=== PATIENT | female | born 1950 | race Caucasian/White ===

== ENCOUNTER 2018-11-03 11:07 | Inpatient (IN) | payer MEDICARE ==
--- NOTE | 2018-11-03 14:33 | RAD ---
XR Chest 1 View Portable History: Shortness of breath Comparison: Radiograph October 21, 2018 Findings: Enlarging right layering pleural effusion involving approximately 50% of the hemithorax vol ume. Small left effusion. No pneumothorax. Heart size is enlarged. Impression: Enlarging right layering pleural effusion and new moderate left effusion.
[2018-11-03] MEDS ORDERED: Bisacodyl 10 MG SUPP PR PRN (14:53)
[2018-11-03] MEDS ORDERED: HYDROcodone/Acetaminophen 5/325 mg Tablet PO PRN (14:53)
[2018-11-03] MEDS ORDERED: Ondansetron ODT 4 MG TAB PO PRN (14:53)
[2018-11-03] MEDS ORDERED: Ondansetron PF 4 MG/2 ML Vial IVP PRN (14:53)
[2018-11-03] MEDS ORDERED: Senokot S 8.6-50 MG TAB PO PRN (14:53)
[2018-11-03] MEDS ORDERED: Acetaminophen 325 MG TAB PO PRN (14:53)
[2018-11-03] MEDS ORDERED: Morphine 2 MG/ML SYRINGE SLOW IVP PRN (14:59)
[2018-11-03] MEDS ORDERED: Albuterol Sulfate 1.25 MG/3 ML NEB NEB PRN (15:00)
[2018-11-03] MEDS ORDERED: Albuterol Sulfate 1.25 MG/3 ML NEB NEB SCH (15:00)
[2018-11-03 15:20] LABS: Mean Corpuscular HGB CONC 32.3 g/dL (32.0-36.0); Mean Corpuscular Hemoglobin 28.5 pg (27.0-31.0); Mean Corpuscular Volume 88.1 fL (78.0-98.0); Mean Platelet Volume 7.8 fL (7.4-10.4); Platelet Count 164 thou/uL (130-400); RBC Distribution Width 14.4 % (11.5-14.5); Red Blood Cell (RBC) Count 4.56 mill/uL (4.20-5.40); White Blood Cell (WBC) Count 10.7 thou/uL (4.8-10.8)
[2018-11-03 15:40] LABS: Anion Gap 15 mmol/L (10-20); BUN (Urea Nitrogen) 10 mg/dL (9.8-20.1); Calc. Creatinine Clearance 163 mL/min (70-130); Calcium 9.6 mg/dL (7.8-10.44); Carbon Dioxide 19 mmol/L (23-31); Chloride 97 mmol/L (98-107); Estimated GFR-MDRD 90; Glucose 93 mg/dL (80-115); Potassium 4.1 mmol/L (3.5-5.1); Sodium 127 mmol/L (136-145); Uric Acid 4.5 mg/dL (2.6-6.0)
[2018-11-03 15:50] LABS: Band 12 % (5-11); Eosinophils 2 % (0-10); Lymphocytes 8 % (21-51); MDiff Complete? YES; Metamyelocyte 1 % (0-0); Monocytes 3 % (0-10); Myelocyte 1 % (0-0); Neutrophil 70 % (42-75); Platelet Morphology Comment Appears Adequate; Polychromasia SLIGHT = 2-3 cells (100X) (0-2/hpf); Reactive Lymphocytes 3 % (0-10)
--- NOTE | 2018-11-03 16:11 | HP ---
PRIMARY CARE PHYSICIAN: Rosales Vicente MD CHIEF COMPLAINT: Worsening shortness of breath. HISTORY OF PRESENT ILLNESS: A 67-year-old female with known history of Sjogren's syndrome, lupus, celiac disease, hypertension, and hypothyroidism, admitted on a transfer from [facility] for further evaluation and treatment of newly diagnosed aggressive lymphoma. The patient was initially admitted at the transferring hospital on October 29 due to progressively worsening shortness of breath dating back more than 8 months. On initial evaluation, impression of sepsis and acute hypoxic respiratory failure from pneumonia was made and the patient was started on broad-spectrum antibiotics. Further evaluation showed pleural effusion for which the patient had thoracentesis. Fluid analysis and pathology actually showed a lymphoma. Due to the absence of that specialty in [facility], the patient was transferred over here for further evaluation and treatment. The patient has been not in the ICU Unit of that hospital and has been on antibiotics as well as noninvasive respiratory support and bronchodilators since admission. She reported some improvement, but however continued to have significant respiratory distress including conversational dyspnea. Note that there has been no history of fever, chest pain, hemoptysis, hematuria, dysuria, headache, or abdominal pain. The patient admitted to bilateral leg swelling, which progressively has worsened as well as upper extremities. PAST MEDICAL HISTORY: 1. Sjogren's syndrome. 2. Lupus. 3. Celiac disease. 4. Hypertension. 5. Hypothyroidism. 6. Obesity. PAST SURGICAL HISTORY: 1. Tonsillectomy. 2. Prior lung biopsy. 3. Breast biopsy. FAMILY HISTORY: Significant for thyroid cancer in mother. Son also had some form of lung cancer. Brother had sarcoidosis. SOCIAL HISTORY: The patient is a nonsmoker. Denied alcohol or recreational drug use. She lives with . She wants to be full code. is the surrogate decision maker. ALLERGIES: NONE. MEDICATIONS: Prior to hospital medications; 1. Losartan 100 mg p.o. daily. 2. Synthroid 100 mcg p.o. daily. 3. Omnicef, which was recently prescribed prior to hospitalization. 4. Cytomel. REVIEW OF SYSTEMS: Twelve-point review of system performed was negative other than pertinent positives and negatives included in the history of present illness. PHYSICAL EXAMINATION: VITAL SIGNS: Temperature 98.3, pulse 107, respiratory rate 23, and SpO2 of 91% on oxygen supplementation via nasal cannula. GENERAL: Obese female, in moderate respiratory distress. The patient has conversational dyspnea. HEENT: Normocephalic, atraumatic. Pupils are reacting to light. Oral mucosa is moist. NECK: Supple, nontender with full range of motion. No obvious masses were noted. CARDIOVASCULAR: Regular rhythm and rate, but tachycardic. Normal heart sounds 1 and 2 with no obvious murmur was appreciated. RESPIRATORY: Fair air entry bilateral with some transmitted sounds. Air entry, however, is decreased at both bases. There is no obvious rhonchi appreciated. Work of breathing is increased. The patient also is tachypneic. GASTROINTESTINAL: Morbidly obese, soft, nontender, nondistended with normal bowel sounds. EXTREMITIES: [id number] edema of all the extremities noted. No erythema or cyanosis appreciated. Right cubital fossa bruise noted as well. CENTRAL NERVOUS SYSTEM: Conscious and alert and oriented x3 with appropriate mental status. Cranial nerves II through XII are grossly intact. PERTINENT DIAGNOSTIC DATA: Pleural fluid cytology showed lymphoma. CTA chest performed on October 29 showed extensive mediastinal adenopathy with soft tissue mass surrounding the trachea and the thoracic esophagus. Moderate layering right pleural effusion with mass-like consolidation within the right lower lobe as well as small left pleural effusion were noted. However, there were no suspicious osteolytic or osteoblastic lesion. Liver appeared cirrhotic. Also noted were extrinsic mass effect upon the right upper lobe pulmonary arteries with complete obliteration of the posterior segment of the right upper lobe pulmonary artery. There is attenuation of the anterior and apical right upper lobe pulmonary arteries. Right middle lobe pulmonary arteries are attenuated. CT scan of the chest performed on October 29 showed extensive right lower lobe consolidation with moderate layering effusion suggesting infection with parapneumonic fluid. BMP on November 02 showed sodium 132, potassium 3.8, chloride 100, CO2 of 22, glucose 97, BUN 12, creatinine 0.77, and calcium 8.9. CBC on November 02 showed WBC of 8.3, hemoglobin of 12.5, MCV of 87, and platelet of 180. ASSESSMENT: 1. Acute respiratory failure with hypoxia: This is due to parapneumonic effusion plus postobstructive pneumonia as well as neoplastic infiltration. The patient is found to have a lymphoma. 2. Pneumonia. 3. Parapneumonic effusion. 4. Mediastinal lymphadenopathy. 5. Hyponatremia: Most likely due to syndrome of inappropriate antidiuretic hormone secretion related to lung mass. 6. History of hypertension. 7. Hypothyroidism. 8. New diagnosis of aggressive lymphoma. 9. Obesity. 10. History of Sjogren's syndrome. 11. History of celiac disease. 12. History of lupus. 13. 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 PLAN: 1. We will continue noninvasive respiratory support as well as broad-spectrum antibiotics. 2. Bronchodilators p.r.n. as needed as well as morphine will be provided. 3. DVT prophylaxis with SCDs and Lovenox will be provided as well. 4. We get repeat CBC, CMP, and coagulation panel in the morning. 5. We will consult Pulmonology and Oncology. General Surgery has been consulted for pleural catheter placement as well as Port-A-Cath to facilitate chemotherapy. CODE STATUS: The patient wants to be full code. Spouse is the surrogate decision maker. Job ID: [id number]
[2018-11-03] MEDS: Azithromycin 500 MG in Sodium Chloride 0.9% 250 ML 250 ML IVPB SCH (16:19)
--- NOTE | 2018-11-03 16:26 | CON ---
DATE OF CONSULTATION: 11/03/2018 REASON FOR CONSULTATION: Evaluate the patient with lymphoma and a right-sided recurrent pleural effusion for PleurX catheter placement. DESCRIPTION OF HOSPITAL STAY: Ms. Nicole has been becoming progressively short of breath over the last month. She had a recent thoracentesis, which returned as lymphoma. Her right-sided effusion has recurred rapidly, and I have been asked to see her to place a PleurX catheter. She also needs a MediPort placed for initiation of chemotherapy. PAST MEDICAL HISTORY: 1. Hypertension. 2. Lymphoma. PAST SURGICAL HISTORY: None. CURRENT MEDICATIONS: 1. Losartan 100 mg daily. 2. Cytomel 5 mcg daily. 3. Synthroid 100 mcg daily. ALLERGIES: NONE. PHYSICAL EXAMINATION: GENERAL: This is an obese woman, resting sitting upright on bed in the [facility], [place]. VITAL SIGNS: Height 5 feet 2 inches, weight 267 pounds. LUNGS: Have diminished breath sounds on the right base. HEART: Rhythm is regular. ABDOMEN: Obese, soft, and nontender. EXTREMITIES: No edema. ASSESSMENT AND PLAN: This is a very pleasant 67-year-old woman, who needs IV access for initiation of chemotherapy and also right PleurX catheter placement. We have discussed the procedures in detail, and she is agreeable to proceed. Job ID: [id number]
[2018-11-03] MEDS: Cefepime 2 GM in Sodium Chloride 0.9% 100 ML IVPB SCH (17:57)
--- NOTE | 2018-11-03 18:12 | PRG ---
DATE OF SERVICE: 11/03/2018 HISTORY OF PRESENT ILLNESS: Ms. Nicole is a 67-year-old female, who is admitted to [facility]. She underwent a thoracentesis over there. 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 She has had a fairly rapid reaccumulation of pleural fluid clinically and also continues to have night sweats and feel poorly. It was felt that she would best be served if she was transferred to [place] for PleurX catheter placement, placement of a MediPort, and initiation of chemotherapy if possible as an inpatient. She has had a 2-month decline in her functional status, starting at the beginning in August. For the last 2 weeks according to the , it had been particularly bad. PAST MEDICAL HISTORY: Remarkable for; 1. Sjogren syndrome. 2. Lupus. 3. Celiac disease. 4. Hypertension. 5. Hypothyroidism. 6. Obesity. 7. History of tonsillectomy. 8. History of breast biopsy in the past. FAMILY HISTORY: Negative for lung disease in early age. SOCIAL HISTORY: Nonsmoker, nondrinker, nondrug user. ALLERGIES: THERE ARE NO REPORTED DRUG ALLERGIES. PHYSICAL EXAMINATION: GENERAL: She is in no distress, although she talks in short sentences. VITAL SIGNS: Blood pressure 135/95, heart rate is 105, respiratory rates in the high 20s, and oximetry is 95% on a cannula. Plan to switch her to a high-flow cannula. She will sleep with BiPAP as she was doing at [facility]. HEENT: Her pupils are equal. Sclerae are anicteric. NECK: Supple. Trachea is in the midline. LUNGS: She has decreased breath sounds retirement up on the right. HEART: Regular rhythm. S1 and S2 are normal. ABDOMEN: Soft and nontender. EXTREMITIES: Without edema. IMPRESSION: Lymphoma. We agreed to work up, but obviously is not complete, but she appears to clinically have an aggressive lymphoma at this time. I have consulted CT Surgery for port placement and a PleurX catheter placement, which should improve her symptoms. I have also consulted Oncology. For interesting to note that she had a very small pleural effusion only 2 weeks ago, now she has a significant effusion that is reaccumulating rapidly. LABORATORY DATA: White count 10.7, hemoglobin 13 g, and platelets 164. There is 1% metamyelocytes and 1% myelocytes on her peripheral smear. Her creatinine is normal. Sodium is 127, on 10/18 it was 140. LDH is 986. Uric acid was 4.5. We will continue to follow the other physicians caring for. Job ID: [id number]
[2018-11-03] MEDS ORDERED: Guaifenesin DM 100-10/5 ML UDCUP PO SCH (20:45)
[2018-11-03] MEDS ORDERED: Temazepam 15 MG CAP PO SCH (20:45)
[2018-11-03] MEDS: Famotidine 20 MG TAB PO SCH (21:05)
[2018-11-03] MEDS: Famotidine/PF 20 mg/2ml Vial SLOW IVP SCH (21:11)
[2018-11-04 05:01] LABS: INR-International Normal Ratio 1.1; PTT 26.1 SEC (22.9-36.1); Prothrombin Time 13.8 SEC (12.0-14.7)
[2018-11-04 05:16] LABS: Phosphorus 2.9 mg/dL (2.3-4.7)
[2018-11-04 05:20] LABS: ALT (SGPT) 25 U/L (8-55); AST (SGOT) 27 U/L (5-34); Albumin 3.6 g/dL (3.4-4.8); Alkaline Phosphatase 53 U/L (40-150); Anion Gap 11 mmol/L (10-20); BUN (Urea Nitrogen) 12 mg/dL (9.8-20.1); Bilirubin, Total 0.9 mg/dL (0.2-1.2); Calc. Creatinine Clearance 147 mL/min (70-130); Calcium 9.6 mg/dL (7.8-10.44); Carbon Dioxide 25 mmol/L (23-31); Chloride 96 mmol/L (98-107); Estimated GFR-MDRD 80; Glucose 84 mg/dL (80-115); Potassium 4.3 mmol/L (3.5-5.1); Protein, Total 5.6 g/dL (6.0-8.3); Sodium 128 mmol/L (136-145)
[2018-11-04 05:44] LABS: Band 1 % (5-11); Hemoglobin 12.7 g/dL (12.0-16.0); Lymphocytes 12 % (21-51); MDiff Complete? YES; Mean Corpuscular HGB CONC 32.7 g/dL (32.0-36.0); Mean Corpuscular Volume 88.7 fL (78.0-98.0); Mean Platelet Volume 7.6 fL (7.4-10.4); Monocytes 11 % (0-10); Neutrophil 75 % (42-75); Platelet Count 145 thou/uL (130-400); RBC Distribution Width 14.3 % (11.5-14.5); Red Blood Cell (RBC) Count 4.37 mill/uL (4.20-5.40); White Blood Cell (WBC) Count 8.7 thou/uL (4.8-10.8)
[2018-11-04] MEDS: Cefepime 2 GM in Sodium Chloride 0.9% 100 ML IVPB SCH ×2 (06:01→17:25)
[2018-11-04] MEDS: Levothyroxine Sodium 100 MCG TAB PO SCH (06:01)
[2018-11-04] MEDS ORDERED: Midazolam HCl 2 mg/2 ml Vial ONE (08:51)
[2018-11-04] MEDS ORDERED: Enoxaparin Sodium 40 MG/0.4 ML SYRINGE SC SCH (09:00)
[2018-11-04] MEDS ORDERED: Bupivacaine HCl 0.5%/Epinephrine 1:200,000/PF 30 ml Vial ONE (09:01)
[2018-11-04] MEDS ORDERED: Lidocaine 1% (PF) 30 ML VIAL ONE (09:01)
[2018-11-04] MEDS ORDERED: Fentanyl 100 MCG/2 ML VIAL ONE ×2 (09:04→13:01)
--- NOTE | 2018-11-04 09:58 | PRG ---
DATE OF SERVICE: 11/04/2018 SUBJECTIVE: Ms. Nicole is tentatively on the schedule for port placement and a PleurX catheter. She has not been seen by Oncology yet. OBJECTIVE: VITAL SIGNS: She is afebrile, heart rate is 109, respiratory rate is 19, oximetry is 92% on 5 L cannula, and blood pressure 122/77. LUNGS: Remarkable for decreased breath sounds at the right base. She actually looks a little better today than she did yesterday overall. HEART: Regular rhythm. ABDOMEN: Soft. LABORATORY DATA: White count 8.7, hemoglobin 12.7, and platelets 145. Sodium 128, potassium 4.3, chloride 96, bicarb 25, BUN 12, and creatinine 0.73. ASSESSMENT AND PLAN: 1. Lymphoma. 2. Hyponatremia, likely SIADH. Order a cortisol level and a TSH. 3. Mild anasarca. Her is concerned about her for extremity edema. I explained to him that I would not try to diurese any of this extra volume off until she has completed her surgical procedures. We also will need to make sure she stays adequately hydrated if she is to have chemotherapy. Job ID: [id number]
[2018-11-04] MEDS ORDERED: Propofol 1,000 MG/100 ML VIAL IV ONE (11:53)
--- NOTE | 2018-11-04 12:04 | OP ---
DATE OF PROCEDURE: 11/04/2018 PREOPERATIVE DIAGNOSIS: Left recurrent pleural effusion with lymphoma on pleural cytology. POSTOPERATIVE DIAGNOSIS: Left recurrent pleural effusion with lymphoma on pleural cytology. PROCEDURE PERFORMED: 1. Right internal jugular vein central line placement. 2. Left internal jugular vein MediPort placement. 3. Right PleurX catheter placement with evacuation of 2 L of fluid. DESCRIPTION OF PROCEDURE: After consent was obtained, the patient was brought to the operating room, placed in supine position on the operating room table. Appropriate central monitoring was placed and general endotracheal anesthesia was induced. There was a very poor IV access. Therefore, the right neck was prepped and draped in usual sterile fashion. Using ultrasound guidance, the right internal jugular vein was cannulated and a 7-Ukrainian triple-lumen central line placed. This was secured with silk suture to the skin and sterilely dressed. Right chest wall was then prepped and draped in usual sterile fashion. A tunneled PleurX catheter was passed. A 2 L of pleural fluid was evacuated. The catheter was secured with Vicryl suture to the skin. Sterile dressing was applied. Left chest wall and neck were prepped and draped in usual sterile fashion. Using ultrasound guidance, the left internal jugular artery was cannulated and guidewire passed. A pocket was then created on the left chest wall. The catheter was tunneled from the pocket up to the guidewire insertion site. The port was connected to the catheter, placed in the pocket and secured with Prolene suture. Using fluoroscopy, the peel-away sheath was then placed over the guidewire. Catheter was cut to appropriate length and passed down into the central venous system. Peel-away sheath was removed. The wound was closed in layers and Dermabond applied to the skin. The port was then percutaneously accessed, aspirated and flushed with heparinized saline. Sterile dressings were applied. Due to the patient's size and poor ventilatory status, she was left intubated and transferred to the intensive care unit intubated, to be weaned as tolerated. Job ID: [id number]
[2018-11-04] MEDS: Sodium Chloride 0.9% 1,000 ML IV SCH ×3 (12:25→21:01)
[2018-11-04] MEDS: Allopurinol 300 MG TAB PO SCH ×2 (12:30→21:01)
[2018-11-04] MEDS: Famotidine 20 MG TAB PO SCH ×2 (12:30→21:01)
[2018-11-04] MEDS: Famotidine/PF 20 mg/2ml Vial SLOW IVP SCH ×2 (12:30→21:09)
[2018-11-04 12:44] LABS: Actual Bicarbonate (HCO3a) 19.7 mEq/L (22-28); Base Excess (BEa) -7.7 mEq/L (-2.0 to +3.0); Carboxyhemoglobin (COHb) 0.9 gm% (0.0-3.0); Hemoglobin (Hb) 11.9 g/dL (12.0-16.0); O2 Tension (PaO2) 84.2 mmHg (> 80.0)
[2018-11-04 12:46] LABS: Puncture Site ALINE; pH, Arterial 7.23 (7.35-7.45)
[2018-11-04] MEDS ORDERED: Morphine 2 MG/ML SYRINGE SLOW IVP PRN (13:15)
[2018-11-04] MEDS ORDERED: Propofol BOLUS 1,000 MG/100 ML VIAL IV PRN (13:15)
[2018-11-04] MEDS ORDERED: DISCONTINUE PREVIOUS NARCOTIC PAIN MEDICATIONS AND BENZODIAZEPINES FS SCH (13:15)
[2018-11-04] MEDS ORDERED: Propofol 1,000 MG/100 ML VIAL IV PRN (13:15)
[2018-11-04] MEDS ORDERED: Fentanyl BOLUS 250 ML IVPB PRN (13:15)
[2018-11-04] MEDS ORDERED: Sodium Chloride 0.45% 1,000 ML IV SCH (14:00)
[2018-11-04] MEDS: Lorazepam 2 MG/ML VIAL SLOW IVP PRN ×2 (14:03→17:49)
[2018-11-04] MEDS: fentaNYL Citrate/PF 2,000 MCG in Sodium Chloride 0.9% 60 ML IV SCH (14:05)
--- NOTE | 2018-11-04 14:15 | RAD ---
PORTABLE CHEST: HISTORY: Postop. COMPARISON: Prior day's exam. FINDINGS: A right-sided chest tube is now in place with marked reduction in the size of the right-sided pleural effusion. There is a large pneumothorax. The lung appears to have incompletely reexpanded. Endotracheal tube is in satisfactory position. A left-sided central line is seen. There is a left-s ided MediPort catheter. The catheter tip would be in the region of the left brachiocephalic vein. A right jugular line is seen with catheter tip overlying the superior vena cava. Subsegmental atelect atic changes are seen in the left base. IMPRESSION: Placement of a right-sided chest tube with evacuation of the pleural effusion. There is a large righ t-sided pneumothorax present relating lack to lack of reexpansion of the right lung. POS: OFF
[2018-11-04] MEDS ORDERED: Dexamethasone 4 mg/ml Vial SLOW IVP SCH (16:15)
[2018-11-04] MEDS ORDERED: vinCRIStine Sulfate 2 MG in Sodium Chloride 0.9% 50 ML IVPB SCH (16:30)
[2018-11-04] MEDS: Azithromycin 500 MG in Sodium Chloride 0.9% 250 ML 250 ML IVPB SCH (16:30)
[2018-11-04] MEDS ORDERED: CYCLOPHOSPHAMIDE IVPB SCH (16:30)
[2018-11-04] MEDS ORDERED: SODIUM CHLORIDE 0.9% IVPB SCH (16:30)
--- NOTE | 2018-11-04 16:51 | PDOC.HOSPP ---
- Subjective Encounter Date: 11/04/18 Encounter Time: 15:30 Subjective: Ms. Nicole was seen today in follow-up of malignant pleural effusion. She has returned from the PleurX catheter placement, and was left intubated. - Objective Vital Signs & Weight: Vital Signs (12 hours) Temp Pulse Resp BP Pulse Ox 11/04/18 16:00 98.3 F 18 11/04/18 14:51 98 158/82 H 11/04/18 14:49 96 14 100 11/04/18 14:00 14 11/04/18 12:58 99 147/70 H 11/04/18 12:05 111 H 159/66 H 11/04/18 12:00 98.5 F 12 97 11/04/18 07:27 98.1 F 11/04/18 06:50 92 L 11/04/18 06:45 109 H 19 92 L Weight Admit Weight 267 lb 3.2 oz Weight 267 lb Most Recent Monitor Data Heart Rate from ECG 109 NIBP 102/73 NIBP BP-Mean 82 Respiration from ECG 18 SpO2 95 I&O: 11/03/18 11/04/18 11/05/18 06:59 06:59 06:59 Intake Total 860 1000 Output Total 250 110 Balance 610 890 Result Diagrams: 11/04/18 04:33 11/04/18 04:33 ROS - Medication Medications: Active Medications Generic Name Dose Route Start Last Admin Trade Name Freq PRN Reason Stop Dose Admin Albuterol/Ipratropium 3 ml 11/03/18 19:00 11/04/18 14:49 Duoneb NEB 3 ml [id number] GALLO Administration Allopurinol 300 mg 11/04/18 09:00 11/04/18 12:30 Zyloprim PO Not Given BID GALLO Famotidine 20 mg 11/03/18 21:00 11/04/18 12:30 Pepcid SLOW IVP Not Given Q12HR GALLO Famotidine 20 mg 11/03/18 21:00 11/04/18 12:30 Pepcid PO Not Given BID GALLO Cefepime HCl 2 gm/ Sodium 100 mls @ 200 mls/hr 11/03/18 17:00 11/04/18 06:01 Chloride IVPB 100 mls 0500,1700 GALLO Administration Azithromycin 500 mg/ Sodium 250 mls @ 250 mls/hr 11/03/18 16:00 11/03/18 16: 19 Chloride IVPB 250 mls Q24HR GALLO Administration Fentanyl Citrate 2,000 mcg/ 100 mls @ 0 mls/hr 11/04/18 13:15 11/04/18 14:05 Sodium Chloride IV 12/04/18 13:15 100 mls INF GALLO Administration Protocol Per Protocol Sodium Chloride 1,000 mls @ 100 mls/hr 11/04/18 13:30 11/04/18 14:07 Normal Saline 0.9% IV 1,000 mls INF GALLO Administration Levothyroxine Sodium 100 mcg 11/04/18 06:00 11/04/18 06:01 Synthroid PO 100 mcg 0600 GALLO Administration Lorazepam 2 mg 11/04/18 13:15 11/04/18 14:03 Ativan SLOW IVP 12/04/18 13:15 2 mg Q1H PRN Administration Breakthrough agitation Morphine Sulfate 2 mg 11/03/18 14:59 11/03/18 16:18 Morphine SLOW IVP 2 mg Q4H PRN Administration Moderate to Severe Pain (6-10) - Exam Eye: PERRL Heart: RRR, no murmur, no gallops, no rubs Respiratory: CTAB, no wheezes, rhonchi (+ occasional rhonchi, and coarse breath sounds) Gastrointestinal: soft, non-tender, non-distended, normal bowel sounds, no palpable masses, no hepatomegaly Hosp A/P (1) Malignant pleural effusion Code(s): J91.0 - MALIGNANT PLEURAL EFFUSION Status: Acute (2) Lymphoma Status: Chronic (3) Hypertension Code(s): I10 - ESSENTIAL (PRIMARY) HYPERTENSION Status: Acute (4) Sjogren's disease Code(s): M35.00 - SICCA SYNDROME, UNSPECIFIED Status: Chronic (5) Hypothyroidism Code(s): E03.9 - HYPOTHYROIDISM, UNSPECIFIED Status: Chronic - Plan * Malginant Pleural Effusion- Patient has had PleurX Cather placed * Vent management per [facility] * HTN- blood pressure is stable * Hypothyroidism- she is clinically euthyroid
[2018-11-04] MEDS ORDERED: Ondansetron PF 4 MG/2 ML Vial ONE (16:53)
[2018-11-04] MEDS ORDERED: Glycopyrrolate 0.2 MG/ML 5 ML SYRINGE ONE (16:53)
[2018-11-04] MEDS ORDERED: Rocuronium Bromide 10 MG/ML (10ML VIAL) ONE (16:53)
[2018-11-04] MEDS ORDERED: PROPOFOL 200 MG/20 ML VIAL ONE (16:53)
[2018-11-04] MEDS ORDERED: Lidocaine 1% PF 5 ML VIAL ONE (16:53)
[2018-11-05 04:11] LABS: Anion Gap 12 mmol/L (10-20); BUN (Urea Nitrogen) 21 mg/dL (9.8-20.1); Calc. Creatinine Clearance 136 mL/min (70-130); Calcium 8.5 mg/dL (7.8-10.44); Carbon Dioxide 20 mmol/L (23-31); Chloride 103 mmol/L (98-107); Estimated GFR-MDRD 73; Glucose 137 mg/dL (80-115); Phosphorus 3.1 mg/dL (2.3-4.7); Potassium 4.7 mmol/L (3.5-5.1); Sodium 130 mmol/L (136-145)
[2018-11-05 04:41] LABS: Band 3 % (5-11); Hemoglobin 10.7 g/dL (12.0-16.0); Lymphocytes 8 % (21-51); MDiff Complete? YES; Mean Corpuscular HGB CONC 34.1 g/dL (32.0-36.0); Mean Corpuscular Hemoglobin 30.2 pg (27.0-31.0); Mean Corpuscular Volume 88.5 fL (78.0-98.0); Mean Platelet Volume 7.8 fL (7.4-10.4); Monocytes 6 % (0-10); Neutrophil 81 % (42-75); Platelet Count 111 thou/uL (130-400); Platelet Morphology Comment Appears Decreased; RBC Distribution Width 14.3 % (11.5-14.5); Reactive Lymphocytes 2 % (0-10); Red Blood Cell (RBC) Count 3.55 mill/uL (4.20-5.40); White Blood Cell (WBC) Count 10.4 thou/uL (4.8-10.8)
[2018-11-05] MEDS: Cefepime 2 GM in Sodium Chloride 0.9% 100 ML IVPB SCH ×2 (05:23→16:43)
[2018-11-05] MEDS: Levothyroxine Sodium 100 MCG TAB PO SCH (05:23)
[2018-11-05] MEDS: Sodium Chloride 0.9% 1,000 ML IV SCH (05:29)
--- NOTE | 2018-11-05 08:55 | RAD ---
PORTABLE CHEST ONE VIEW: 11/05/2018 5:14 a.m. HISTORY: Respiratory failure. COMPARISON: Exam from the previous day. FINDINGS: There is interval repositioning of the right-sided chest tube with resolution of the right pneumothor ax since the previous day's exam. The remainder of the exam is otherwise stable. POS: CANDACE
[2018-11-05] MEDS ORDERED: methylPREDNISolone Sod Succ/PF 125 MG/2 ML VIAL IVP SCH (09:00)
[2018-11-05] MEDS: Famotidine/PF 20 mg/2ml Vial SLOW IVP SCH ×2 (09:29→20:47)
[2018-11-05] MEDS: Famotidine 20 MG TAB PO SCH ×2 (09:29→20:47)
[2018-11-05] MEDS: Allopurinol 300 MG TAB PO SCH ×2 (09:31→20:47)
[2018-11-05] MEDS ORDERED: Furosemide 40 MG/4 ML VIAL SLOW IVP SCH (10:45)
--- NOTE | 2018-11-05 10:58 | PDOC.MOPN ---
Interval History: Remains intubated and sedated. - Vital Signs Vital Signs: Vital Signs (12 hours) Temp Pulse Resp BP Pulse Ox 11/05/18 10:06 103 H 131/66 11/05/18 10:05 105 H 13 98 11/05/18 10:00 20 11/05/18 08:00 17 11/05/18 07:38 95 11/05/18 07:00 98.5 F 11/05/18 06:48 87 14 95 11/05/18 06:00 15 11/05/18 04:00 98.4 F 14 11/05/18 02:00 15 11/05/18 00:00 98.5 F 14 Weight Admit Weight 267 lb 3.2 oz Weight 282 lb 13.649 oz Most Recent Monitor Data Heart Rate from ECG 106 NIBP 131/66 NIBP BP-Mean 87 Respiration from ECG 28 SpO2 94 - Physical Exam General: No acute distress HEENT: Atraumatic Lungs: Other (crackles) Cardiovascular: Regular rate Abdomen: Soft Extremities: Other (3+ edema all extremities) Neurological: Other (sedated) Psych/Mental Status: Other - Labs Result Diagrams: 11/05/18 03:35 11/05/18 03:35 Lab results: Laboratory Results - last 24 hr 11/05/18 03:35: WBC 10.4, RBC 3.55 L, Hgb 10.7 L, Hct 31.4 L, MCV 88.5, MCH 30.2 , MCHC 34.1, RDW 14.3, Plt Count 111 L, MPV 7.8, Neutrophils % (Manual) 81 H, Band Neuts % (Manual) 3 L, Lymphocytes % (Manual) 8 L, Reactive Lymphs % 2, Monocytes % (Manual) 6, Plt Morphology Comment Appears Decreased L 11/05/18 03:35: Sodium 130 L, Potassium 4.7, Chloride 103, Carbon Dioxide 20 L, Anion Gap 12, BUN 21 H, Creatinine 0.79, Estimated GFR (MDRD) 73, Glucose 137 H , Calcium 8.5, Phosphorus 3.1 11/05/18 03:35: Lactate Dehydrogenase 1425 H 11/05/18 03:35: Uric Acid 7.1 H 11/04/18 12:22: Puncture Site MARK, Bicarbonate Actual 19.7 L, ABG pH 7.23 L*, ABG pCO2 48.0 H, ABG pO2 84.2 H, ABG O2 Sat Calc/Anabella 95.4, ABG O2 Content 15.9 L, ABG Base Excess -7.7 L, ABG Hematocrit 35.0 L, ABG Hemoglobin 11.9 L, ABG Oxyhemoglobin 94.3, ABG Carboxyhemoglobin 0.9, ABG Methemoglobin 0.30, ABG Deoxyhemoglobin 4.5 H, Akash Test POSITIVE, A-a O2 Gradient 212.300 H, Sodium 127 L, Potassium 4.20, Chloride 97 L, Ionized Calcium 1.20, Mode of Support SIMV , % Minute Volume 6.0, Mechanical Rate 12, Inspired O2 50, Tidal Volume 500, Peak Inspir Pressure 34, Pressure Support 10, PEEP or CPAP 5.0 Status: lab reviewed by me A/P - Problem (1) Malignant pleural effusion Current Visit: Yes Code(s): J91.0 - MALIGNANT PLEURAL EFFUSION Status: Acute (2) Lymphoma Current Visit: Yes Status: Acute Qualifiers: Lymphoma type: non-Hodgkin - Plan Plan: Patient received Vincristine and Cytoxan yesterday ECHO completed, patients EF 55-60% Plan Doxirubicin today IVF for tumor lysis, managed by Dr. Thomas CT abd/pelvis pending extubation
[2018-11-05] MEDS: Sodium Chloride 0.45% 1,000 ML IV SCH ×2 (11:04→19:50)
--- NOTE | 2018-11-05 11:05 | PRG ---
DATE OF SERVICE: 11/05/2018 SERVICE: Pulmonary Medicine. INTERVAL HISTORY: The patient is doing poorly from respiratory standpoint. Overnight, she had some marginal blood pressures and got a couple liters of fluid. She went into the operating room in a slightly volume up state. They had difficult time extubating her directly and she was placed in the ICU on mechanical ventilation. She cannot provide any additional elements of the history. She is requiring some intermittent sedation in order to stay comfortable. PHYSICAL EXAMINATION: VITAL SIGNS: Afebrile currently. Pulse 103, blood pressure 118/64, respirations 13, saturation 98% on 50% FiO2, and a PEEP of 7. GENERAL: The patient is awake and alert, in no apparent distress. LUNGS: Decreased air entry. There is a prolonged expiratory phase. Polyphonic wheezing, rhonchi, and crackles are all present. HEART: Normal rate and regular. ABDOMEN: Soft. Nontender and nondistended. Bowel sounds are positive. MUSCULOSKELETAL: No cyanosis or clubbing. There is diffuse 2+ pitting throughout. NEUROLOGIC: Grossly nonfocal. LABORATORY DATA: WBC 10.4, hemoglobin 10.7, and platelets 111,000 and gently downtrending. INR 1.1. PH 7.23, pCO2 of 48, pO2 of 84, this was performed yesterday. Sodium 130 and gently up-trending. Basic metabolic profile is otherwise unremarkable. Phosphorus 3.1, LDH 1425 and gently up-trending. In's and out's are plus 3 L over the last 24 hours. IMAGING: Chest x-ray demonstrates PleurX catheter placement. Right IJ central venous catheter is in good position. Left port catheter is in place. Enteric catheter courses below the level of diaphragm into the expected region of the stomach. There is a small pneumothorax present on the right. Echocardiogram demonstrates normal ejection fraction with some diastolic dysfunction and minimal valvular abnormalities. ASSESSMENT: 1. Acute hypoxic respiratory failure. 2. Malignant effusion, status post PleurX catheter placement. 3. Lymphoma. 4. Tumor lysis syndrome, mild. 5. Sjogren disease. DISCUSSION AND PLAN: The patient is on mechanical ventilator. I put on a spontaneous breathing trial, but she started having prolonged expiratory phase and paradoxical motion of the diaphragm. As such, I have put her back on rate. We are going to give her some Lasix and pull some fluid from her. I will put her on nebulized medications and steroids. This afternoon, I will try to repeat spontaneous breathing trial. Extubation will be considered once she can tolerate this maneuver. Critical care time: 30 minutes. Job ID: [id number]
[2018-11-05] MEDS ORDERED: DOXORUBICIN IVPB SCH (11:15)
[2018-11-05] MEDS ORDERED: Palonosetron HCl 0.25 MG in Sodium Chloride 0.9% 50 ML IVPB SCH (11:15)
[2018-11-05] MEDS ORDERED: SODIUM CHLORIDE 0.9% IVPB SCH (11:15)
[2018-11-05] MEDS ORDERED: Bacteriostatic Water 30 ML VIAL FS PRN (11:16)
[2018-11-05] MEDS: methylPREDNISolone Sod Succ/PF 125 MG/2 ML VIAL IVP SCH (11:31)
--- NOTE | 2018-11-05 15:30 | CT ---
CT ABDOMEN AND PELVIS WITH ORAL AND IV CONTRAST: HISTORY: Lymphoma staging. FINDINGS: There is subcutaneous emphysema in the right anterior and lateral chest wall with a small to moderate sized right pneumothorax. The tip of the right chest tube appears to be within the lung parenchyma. There are bilateral pleural effusions with adjacent consolidation changes, right greater than left. There is mediastinal lymphadenopathy. No free air or free fluid is seen in the abdomen or pelvis. There is a 9 mm lymph node in the aortoc aval space. The liver, spleen, pancreas, adrenal glands, and kidneys are normal. There are calcifie d gallstones. There are degenerative changes without evidence of aneurysmal dilatation of the abdominal aorta. A u terus is present. The small bowel loops are not abnormally dilated. IMPRESSION: 1. Bilateral pleural effusion and adjacent consolidative changes. 2. Right pneumothorax with malpositioning of the right chest tube. 3. A 9 mm aortocaval lymph node. 4. Cholelithiasis. The report was called over the telephone to the patient's nurse (Pernell Casillas RN) at 3:20 p.m. CODE CR POS: [facility]
[2018-11-05] MEDS: Azithromycin 500 MG in Sodium Chloride 0.9% 250 ML 250 ML IVPB SCH (15:38)
[2018-11-05] MEDS: Lorazepam 2 MG/ML VIAL SLOW IVP PRN (15:41)
--- NOTE | 2018-11-05 17:39 | PDOC.HOSPP ---
- Subjective Encounter Date: 11/05/18 Encounter Time: 10:45 Subjective: Ms. Nicole was seen today in follow-up of malignant pleural effusion. She is intubated. Sedation has been decreased. She is awake and following commands. - Objective Vital Signs & Weight: Vital Signs (12 hours) Temp Pulse Resp BP Pulse Ox 11/05/18 16:00 99 F 14 11/05/18 15:13 107/54 L 11/05/18 15:09 99 10 L 98 11/05/18 14:00 19 11/05/18 12:00 98.4 F 20 11/05/18 10:06 103 H 131/66 11/05/18 10:05 105 H 13 98 11/05/18 10:00 20 11/05/18 08:00 17 11/05/18 07:38 95 11/05/18 07:00 98.5 F 11/05/18 06:48 87 14 95 11/05/18 06:00 15 Weight Admit Weight 267 lb 3.2 oz Weight 282 lb 13.649 oz Most Recent Monitor Data Heart Rate from ECG 113 NIBP 99/53 NIBP BP-Mean 68 Respiration from ECG 21 SpO2 98 I&O: 11/04/18 11/05/18 11/06/18 06:59 06:59 06:59 Intake Total 860 3456.9 1709 Output Total 585 145 2476 Balance 610 2895.9 -166 Result Diagrams: 11/05/18 03:35 11/05/18 03:35 ROS - Medication Medications: Active Medications Generic Name Dose Route Start Last Admin Trade Name Freq PRN Reason Stop Dose Admin Albuterol/Ipratropium 3 ml 11/03/18 19:00 11/05/18 15:09 Duoneb NEB 3 ml [id number] GALLO Administration Allopurinol 300 mg 11/04/18 09:00 11/05/18 09:31 Zyloprim PO 300 mg BID GALLO Administration Famotidine 20 mg 11/03/18 21:00 11/05/18 09:29 Pepcid SLOW IVP 20 mg Q12HR GALLO Administration Famotidine 20 mg 11/03/18 21:00 11/05/18 09:29 Pepcid PO Not Given BID GALLO Cefepime HCl 2 gm/ Sodium 100 mls @ 200 mls/hr 11/03/18 17:00 11/05/18 16:43 Chloride IVPB 100 mls 0500,1700 GALLO Administration Azithromycin 500 mg/ Sodium 250 mls @ 250 mls/hr 11/03/18 16:00 11/05/18 15: 38 Chloride IVPB 250 mls Q24HR GALLO Administration Fentanyl Citrate 2,000 mcg/ 100 mls @ 0 mls/hr 11/04/18 13:15 11/04/18 14:05 Sodium Chloride IV 12/04/18 13:15 100 mls INF GALLO Administration Protocol Per Protocol Sodium Chloride 1,000 mls @ 125 mls/hr 11/05/18 10:45 11/05/18 11:04 1/2 Normal Saline IV 1,000 mls .Q8H GALLO Administration Palonosetron 0.25 mg/ Sodium 55 mls @ 165 mls/hr 11/05/18 11:15 11/05/18 12: 22 Chloride IVPB 11/05/18 21:00 55 mls NOW GALLO Administration Doxorubicin HCl 108 mg/ Sodium 104 mls @ 208 mls/hr 11/05/18 11:15 11/05/18 12:21 Chloride IVPB 11/05/18 23:59 104 mls WILLCALL GALLO Administration Levothyroxine Sodium 100 mcg 11/04/18 06:00 11/05/18 05:23 Synthroid PO 100 mcg 0600 GALLO Administration Lorazepam 2 mg 11/04/18 13:15 11/05/18 15:41 Ativan SLOW IVP 12/04/18 13:15 2 mg Q1H PRN Administration Breakthrough agitation Methylprednisolone Sodium Succinate 80 mg 11/05/18 12:00 11/05/18 11:31 Solu-Medrol IVP 11/09/18 12:01 80 mg 1200 GALLO Administration Morphine Sulfate 2 mg 11/03/18 14:59 11/03/18 16:18 Morphine SLOW IVP 2 mg Q4H PRN Administration Moderate to Severe Pain (6-10) - Exam Eye: PERRL, anicteric sclera Heart: RRR, no murmur, no gallops, no rubs, normal peripheral pulses Respiratory: CTAB, no wheezes, no rales, no ronchi, normal chest expansion, no tachypnea, normal percussion Gastrointestinal: soft, non-tender, non-distended, normal bowel sounds, no palpable masses, no hepatomegaly, no splenomegaly Extremities: 2+ LE edema (+ generalized edema in both upper and lower extremities) Skin: normal turgor, no lesions, no rashes Hosp A/P (1) Malignant pleural effusion Code(s): J91.0 - MALIGNANT PLEURAL EFFUSION Status: Acute (2) Lymphoma Status: Acute Qualifiers: Lymphoma type: non-Hodgkin (3) Hypertension Code(s): I10 - ESSENTIAL (PRIMARY) HYPERTENSION Status: Acute (4) Sjogren's disease Code(s): M35.00 - SICCA SYNDROME, UNSPECIFIED Status: Chronic (5) Hypothyroidism Code(s): E03.9 - HYPOTHYROIDISM, UNSPECIFIED Status: Chronic - Plan * Malginant Pleural Effusion-s/p PleurX Cather placement * Acute respirat failure- she appears volume overloaded on CXR- She is on a CPAP trial Lasix has been ordered by Dr. Thomas, and hopefully she can be extubated soon * Lymphoma- plan is to begin chemotherapy soon * HTN- stable * Hypothyroidism- she is clinically euthyroid
[2018-11-05] MEDS ORDERED: Norepinephrine 8 MG in Dextrose 5% in Water 242 ML IVPB PRN (21:50)
[2018-11-05] MEDS: fentaNYL Citrate/PF 2,000 MCG in Sodium Chloride 0.9% 60 ML IV SCH (22:51)
[2018-11-06] MEDS: Cefepime 2 GM in Sodium Chloride 0.9% 100 ML IVPB SCH ×2 (04:25→16:22)
[2018-11-06] MEDS: Sodium Chloride 0.45% 1,000 ML IV SCH ×2 (04:25→09:48)
[2018-11-06 05:48] LABS: Phosphorus 2.9 mg/dL (2.3-4.7)
[2018-11-06] MEDS: Levothyroxine Sodium 100 MCG TAB PO SCH (05:57)
[2018-11-06] MEDS ORDERED: Furosemide 40 MG/4 ML VIAL SLOW IVP SCH ×2 (06:00→14:00)
--- NOTE | 2018-11-06 09:01 | RAD ---
AP CHEST: HISTORY: Follow up pneumothorax. COMPARISON: 11/05/2018 FINDINGS: Right chest tube. Opacification of the right lung base again noted. Mild subcutaneous emphysema ove r the right chest again noted. No significant pneumothorax apparent. ET tube, NG tube, and central line appear adequately positioned. Left lung remains clear. IMPRESSION: No acute interval change. POS: [facility]
[2018-11-06] MEDS: Famotidine/PF 20 mg/2ml Vial SLOW IVP SCH ×2 (09:15→22:18)
[2018-11-06] MEDS: Famotidine 20 MG TAB PO SCH ×2 (09:41→20:51)
[2018-11-06 09:42] LABS: Anion Gap 12 mmol/L (10-20); BUN (Urea Nitrogen) 24 mg/dL (9.8-20.1); Calc. Creatinine Clearance 160 mL/min (70-130); Calcium 8.6 mg/dL (7.8-10.44); Carbon Dioxide 21 mmol/L (23-31); Chloride 102 mmol/L (98-107); Estimated GFR-MDRD 83; Glucose 132 mg/dL (80-115); Potassium 3.9 mmol/L (3.5-5.1); Sodium 131 mmol/L (136-145)
[2018-11-06] MEDS: Allopurinol 300 MG TAB PO SCH ×2 (09:44→20:51)
--- NOTE | 2018-11-06 10:09 | PRG ---
DATE OF SERVICE: 11/06/2018 SERVICE: Pulmonary Medicine. INTERVAL HISTORY: The patient is doing fine from respiratory standpoint. Her oxygen requirements are actually improving. She has no complaints this morning. She did not have any overnight events. Urine output has been absolutely wonderful. PHYSICAL EXAMINATION: VITAL SIGNS: Afebrile. Pulse 91, blood pressure 118/56, respirations 7, and saturation 96%, currently on 40% FiO2 and a PEEP of 5. GENERAL: The patient is awake and alert, in no apparent distress. LUNGS: Decent air entry. Dependent crackles are present. No prolonged expiratory phase or wheezing is appreciated. HEART: Normal rate, regular. ABDOMEN: Soft, nontender, nondistended. Bowel sounds are positive. MUSCULOSKELETAL: No cyanosis or clubbing. There is diffuse pitting edema. NEUROLOGIC: Grossly nonfocal. LABORATORY DATA: WBC 10.4, hemoglobin 10.7, and platelets 111,000. Sodium 130 and up-trending. Creatinine 0.79, remains low. Uric acid level is downtrending, LDH is also downtrending, phosphorus 2.9. IMAGING: Chest x-ray demonstrates no acute interval change. Endotracheal tube remains in good position, roughly 2 cm above the level of leanne. Enteric catheter courses into the stomach. There is a right-sided pleural effusion. Cephalization is still present. ASSESSMENT: 1. Acute hypoxic respiratory failure. 2. Malignant effusion, status post PleurX catheter placement on the right. 3. Lymphoma. 4. Sjogren disease. DISCUSSION AND PLAN: We will continue to diurese the patient down to euvolemia. Her mild tumor lysis is under good control. We will back off on her IV fluids ever so slightly. When she meets criteria, extubation will be considered. At this point, she has a little bit too much water on her to safely extubate, however. Job ID: [id number]
--- NOTE | 2018-11-06 10:12 | PDOC.HOSPP ---
- Subjective Encounter Date: 11/06/18 Encounter Time: 10:10 Subjective: Ms. Nicole was seen today in follow-up of malignant pleural effusion with respiratory failure. She remains intubated. She is awake and alert. She follows commends. - Objective Vital Signs & Weight: Vital Signs (12 hours) Temp Pulse Resp BP Pulse Ox 11/06/18 08:00 98.1 F 15 11/06/18 06:35 96 131/63 11/06/18 06:32 92 12 96 11/06/18 06:00 16 11/06/18 04:00 98.0 F 12 11/06/18 02:22 95 11/06/18 02:00 11 L 11/06/18 00:00 98.2 F 14 Weight Admit Weight 267 lb 3.2 oz Weight 283 lb 8.231 oz Most Recent Monitor Data Heart Rate from ECG 91 NIBP 118/56 NIBP BP-Mean 76 Respiration from ECG 7 SpO2 96 I&O: 11/05/18 11/06/18 11/07/18 06:59 06:59 06:59 Intake Total 3456.9 3664.1 Output Total 561 3080 1920 Balance 2895.9 584.1 -1920 Result Diagrams: 11/05/18 03:35 11/06/18 09:15 ROS - Medication Medications: Active Medications Generic Name Dose Route Start Last Admin Trade Name Freq PRN Reason Stop Dose Admin Albuterol/Ipratropium 3 ml 11/03/18 19:00 11/06/18 06:32 Duoneb NEB 3 ml [id number] GALLO Administration Allopurinol 300 mg 11/04/18 09:00 11/06/18 09:44 Zyloprim PO 300 mg BID GALLO Administration Famotidine 20 mg 11/03/18 21:00 11/06/18 09:15 Pepcid SLOW IVP 20 mg Q12HR GALLO Administration Famotidine 20 mg 11/03/18 21:00 11/06/18 09:41 Pepcid PO Not Given BID GALLO Cefepime HCl 2 gm/ Sodium 100 mls @ 200 mls/hr 11/03/18 17:00 11/06/18 04:25 Chloride IVPB 100 mls 0500,1700 GALLO Administration Azithromycin 500 mg/ Sodium 250 mls @ 250 mls/hr 11/03/18 16:00 11/05/18 15: 38 Chloride IVPB 250 mls Q24HR GALLO Administration Fentanyl Citrate 2,000 mcg/ 100 mls @ 0 mls/hr 11/04/18 13:15 11/05/18 22:51 Sodium Chloride IV 12/04/18 13:15 100 mls INF GALLO Administration Protocol Per Protocol Norepinephrine Bitartrate 8 mg 250 mls @ 0 mls/hr 11/05/18 21:50 11/05/18 21: 56 / Dextrose/Water IVPB 250 mls INF PRN Administration TO MAINTAIN MAP > 65 Protocol As Directed Sodium Chloride 1,000 mls @ 75 mls/hr 11/06/18 09:33 11/06/18 09:48 1/2 Normal Saline IV 1,000 mls .[id number] GALLO Administration Levothyroxine Sodium 100 mcg 11/04/18 06:00 11/06/18 05:57 Synthroid PO 100 mcg 0600 GALLO Administration Lorazepam 2 mg 11/04/18 13:15 11/05/18 15:41 Ativan SLOW IVP 12/04/18 13:15 2 mg Q1H PRN Administration Breakthrough agitation Methylprednisolone Sodium Succinate 80 mg 11/05/18 12:00 11/05/18 11:31 Solu-Medrol IVP 11/09/18 12:01 80 mg 1200 GALLO Administration Morphine Sulfate 2 mg 11/03/18 14:59 11/03/18 16:18 Morphine SLOW IVP 2 mg Q4H PRN Administration Moderate to Severe Pain (6-10) Propofol 1,000 mg 11/04/18 13:15 11/06/18 09:55 Diprivan IV 12/04/18 13:15 1,000 mg INF PRN Administration TO ACHIEVE GOAL RASS Protocol - Exam Eye: PERRL, anicteric sclera Heart: RRR, no murmur, no gallops, no rubs, normal peripheral pulses Respiratory: rales (+ scattered rales, and decreased breath sounds at the bases) Gastrointestinal: soft, non-tender, non-distended, normal bowel sounds, no palpable masses, no hepatomegaly Extremities: no cyanosis, no clubbing, 1+ LE edema (Both lower extremities) Hosp A/P (1) Malignant pleural effusion Code(s): J91.0 - MALIGNANT PLEURAL EFFUSION Status: Acute (2) Lymphoma Status: Acute Qualifiers: Lymphoma type: non-Hodgkin (3) Hypertension Code(s): I10 - ESSENTIAL (PRIMARY) HYPERTENSION Status: Acute (4) Sjogren's disease Code(s): M35.00 - SICCA SYNDROME, UNSPECIFIED Status: Chronic (5) Hypothyroidism Code(s): E03.9 - HYPOTHYROIDISM, UNSPECIFIED Status: Chronic - Plan * Malignant Pleural Effusion-s/p PleurX Cather placement * Acute respiratory failure- plan is for CPAP trial again today * Lymphoma- plan is to begin chemotherapy soon * HTN- she has had episodes of low blood pressure when on sedation- she was placed on pressors overnight- clinically stable at this point * Hypothyroidism- she is clinically euthyroid
[2018-11-06] MEDS: methylPREDNISolone Sod Succ/PF 125 MG/2 ML VIAL IVP SCH (12:25)
[2018-11-06] MEDS: Azithromycin 500 MG in Sodium Chloride 0.9% 250 ML 250 ML IVPB SCH (16:17)
[2018-11-07] MEDS: Sodium Chloride 0.45% 1,000 ML IV SCH ×2 (03:45→11:43)
[2018-11-07] MEDS: Cefepime 2 GM in Sodium Chloride 0.9% 100 ML IVPB SCH ×2 (05:29→17:07)
[2018-11-07] MEDS: Levothyroxine Sodium 100 MCG TAB PO SCH (05:29)
[2018-11-07] MEDS: Furosemide 40 MG/4 ML VIAL SLOW IVP SCH (05:29)
[2018-11-07 06:30] LABS: Phosphorus 2.7 mg/dL (2.3-4.7)
--- NOTE | 2018-11-07 08:17 | PDOC.MOPN ---
Interval History: Pt is extubated and feeling much better overall. She denies any SOB at the moment. No problems with chemotherapy thus far. - Vital Signs Vital Signs: Vital Signs (12 hours) Temp Pulse Resp Pulse Ox 11/07/18 07:17 97 11/07/18 07:12 98 11/07/18 07:09 87 15 98 11/07/18 07:00 97.8 F 11/07/18 04:00 97.6 F 11/07/18 00:00 97 11/06/18 23:00 97.6 F Weight Admit Weight 267 lb 3.2 oz Weight 274 lb 4.081 oz Most Recent Monitor Data Heart Rate from ECG 91 NIBP 124/67 NIBP BP-Mean 86 Respiration from ECG 19 SpO2 99 - Physical Exam General: Alert, Oriented x3, Cooperative, No acute distress HEENT: EOMI Lungs: Normal air movement Cardiovascular: Regular rate, Normal S1, Normal S2 Abdomen: Soft, No tenderness Skin: No rashes Neurological: Cranial nerves 3-12 NL Psych/Mental Status: Mental status NL, Mood NL - Labs Result Diagrams: 11/05/18 03:35 11/06/18 09:15 Lab results: Laboratory Results - last 24 hr 11/07/18 05:35: Phosphorus 2.7 11/07/18 05:35: Lactate Dehydrogenase 964 H 11/07/18 05:35: Uric Acid 5.3 11/06/18 09:15: Sodium 131 L, Potassium 3.9, Chloride 102, Carbon Dioxide 21 L, Anion Gap 12, BUN 24 H, Creatinine 0.71, Estimated GFR (MDRD) 83, Glucose 132 H , Calcium 8.6 A/P - Problem (1) Lymphoma Current Visit: Yes Status: Acute Qualifiers: Lymphoma type: non-Hodgkin Non-Hodgkin lymphoma type: 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 Also received Neulasta -- respiratory status much improved and TLS labs stable Rituxan once received CT-A/P and BMBx to complete staging - unable to lie flat or prone at this time, will complete once pt is more stable respiratory care as per Pulm
[2018-11-07 08:29] LABS: Anion Gap 9 mmol/L (10-20); BUN (Urea Nitrogen) 22 mg/dL (9.8-20.1); Calc. Creatinine Clearance 172 mL/min (70-130); Calcium 8.7 mg/dL (7.8-10.44); Carbon Dioxide 28 mmol/L (23-31); Chloride 102 mmol/L (98-107); Estimated GFR-MDRD Greater than 90; Glucose 124 mg/dL (80-115); Potassium 4.2 mmol/L (3.5-5.1); Sodium 135 mmol/L (136-145)
[2018-11-07 08:32] LABS: Hemoglobin 10.5 g/dL (12.0-16.0); Mean Corpuscular HGB CONC 33.6 g/dL (32.0-36.0); Mean Corpuscular Hemoglobin 29.9 pg (27.0-31.0); Mean Platelet Volume 8.2 fL (7.4-10.4); Platelet Count 129 thou/uL (130-400); RBC Distribution Width 14.3 % (11.5-14.5); Red Blood Cell (RBC) Count 3.53 mill/uL (4.20-5.40); White Blood Cell (WBC) Count 15.6 thou/uL (4.8-10.8)
[2018-11-07] MEDS: Famotidine/PF 20 mg/2ml Vial SLOW IVP SCH (08:39)
[2018-11-07] MEDS: Famotidine 20 MG TAB PO SCH ×2 (08:40→20:37)
[2018-11-07] MEDS: Allopurinol 300 MG TAB PO SCH ×2 (08:43→20:37)
--- NOTE | 2018-11-07 08:56 | PDOC.HOSPP ---
- Subjective Encounter Date: 11/07/18 Encounter Time: 08:53 Subjective: Ms. Nicole was seen today in follow-up of malignant pleural effusion, and respiratory failure. She has been extubated, and is sitting up in the bed conversing. She denies feeling short of breath. She denies any chest pain. - Objective Vital Signs & Weight: Vital Signs (12 hours) Temp Pulse Resp Pulse Ox 11/07/18 07:17 97 11/07/18 07:12 98 11/07/18 07:09 87 15 98 11/07/18 07:00 97.8 F 11/07/18 04:00 97.6 F 11/07/18 00:00 97 11/06/18 23:00 97.6 F Weight Admit Weight 267 lb 3.2 oz Weight 274 lb 4.081 oz Most Recent Monitor Data Heart Rate from ECG 91 NIBP 124/67 NIBP BP-Mean 86 Respiration from ECG 19 SpO2 99 I&O: 11/06/18 11/07/18 11/08/18 06:59 06:59 06:59 Intake Total 3664.1 2514 Output Total 3080 7170 655 Balance 584.1 -4656 -655 Result Diagrams: 11/07/18 05:35 11/07/18 05:35 ROS - Medication Medications: Active Medications Generic Name Dose Route Start Last Admin Trade Name Freq PRN Reason Stop Dose Admin Albuterol/Ipratropium 3 ml 11/03/18 19:00 11/07/18 07:09 Duoneb NEB 3 ml [id number] GALLO Administration Allopurinol 300 mg 11/04/18 09:00 11/07/18 08:43 Zyloprim PO 300 mg BID GALLO Administration Famotidine 20 mg 11/03/18 21:00 11/07/18 08:39 Pepcid SLOW IVP 20 mg Q12HR GALLO Administration Famotidine 20 mg 11/03/18 21:00 11/07/18 08:40 Pepcid PO Not Given BID GALLO Furosemide 40 mg 11/07/18 06:00 11/07/18 05:29 Lasix SLOW IVP 40 mg 0600 GALLO Administration Cefepime HCl 2 gm/ Sodium 100 mls @ 200 mls/hr 11/03/18 17:00 11/07/18 05:29 Chloride IVPB 100 mls 0500,1700 GALLO Administration Azithromycin 500 mg/ Sodium 250 mls @ 250 mls/hr 11/03/18 16:00 11/06/18 16: 17 Chloride IVPB 250 mls Q24HR GALLO Administration Norepinephrine Bitartrate 8 mg 250 mls @ 0 mls/hr 11/05/18 21:50 11/05/18 21: 56 / Dextrose/Water IVPB 250 mls INF PRN Administration TO MAINTAIN MAP > 65 Protocol As Directed Sodium Chloride 1,000 mls @ 75 mls/hr 11/06/18 09:33 11/07/18 03:45 1/2 Normal Saline IV 1,000 mls .[id number] GALLO Administration Levothyroxine Sodium 100 mcg 11/04/18 06:00 11/07/18 05:29 Synthroid PO 100 mcg 0600 GALLO Administration Methylprednisolone Sodium Succinate 80 mg 11/05/18 12:00 11/06/18 12:25 Solu-Medrol IVP 11/09/18 12:01 80 mg 1200 GALLO Administration Morphine Sulfate 2 mg 11/03/18 14:59 11/03/18 16:18 Morphine SLOW IVP 2 mg Q4H PRN Administration Moderate to Severe Pain (6-10) - Exam Eye: PERRL Heart: RRR, no murmur, no gallops, no rubs, normal peripheral pulses Respiratory: CTAB, no wheezes, no rales, no ronchi, normal chest expansion Gastrointestinal: soft, non-tender, non-distended, normal bowel sounds Extremities: 1+ LE edema (in both lower extremities, no erythema) Neurological: CN's grossly intact, no focal deficits Hosp A/P (1) Malignant pleural effusion Code(s): J91.0 - MALIGNANT PLEURAL EFFUSION Status: Acute (2) Lymphoma Status: Acute Qualifiers: Lymphoma type: non-Hodgkin Non-Hodgkin lymphoma type: B-cell B-cell lymphoma type: diffuse large B-cell Lymphoma site: intrathoracic nodes Qualified Code(s): C83.32 - Diffuse large B-cell lymphoma, intrathoracic lymph nodes (3) Hypertension Code(s): I10 - ESSENTIAL (PRIMARY) HYPERTENSION Status: Acute (4) Sjogren's disease Code(s): M35.00 - SICCA SYNDROME, UNSPECIFIED Status: Chronic (5) Hypothyroidism Code(s): E03.9 - HYPOTHYROIDISM, UNSPECIFIED Status: Chronic (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
[2018-11-07 09:12] LABS: Band 41 % (5-11); Lymphocytes 1 % (21-51); MDiff Complete? YES; Metamyelocyte 1 % (0-0); Monocytes 3 % (0-10); Neutrophil 54 % (42-75); Platelet Morphology Comment Appears Decreased; Polychromasia SLIGHT = 2-3 cells (100X) (0-2/hpf); Vacuoles SLIGHT
--- NOTE | 2018-11-07 09:33 | CON ---
DATE OF CONSULTATION: 11/04/2018 REASON FOR CONSULTATION: Lymphoma. HISTORY OF PRESENT ILLNESS: A 67-year-old female with history of Sjogren's, Lupus, celiac disease, hypertension, hypothyroidism, and morbid obesity, was admitted to [facility] with progressive worsening shortness of breath which is getting worse over the last 8 months and was admitted to the hospital with sepsis and pneumonia and a large pleural effusion and receiving thoracentesis with preliminary pathology showing lymphoma, and so she was transferred over to [facility], so that she could initiate chemotherapy. On initial workup, she had a CT angio of the chest that did not show pulmonary embolism, but did show extensive mediastinal adenopathy with a soft tissue mass surrounding trachea and thoracic esophagus, large effusions. Before I could speak with the patient, she was taken to surgery by Dr. Jeremie Adair for PleurX catheter and MediPort placement. I requested Dr. Adair to attempt to biopsy the tissue, however, this was not possible during surgery. Preliminary pathologies show a B-cell lymphoma that appears to be a large cell. Unclear at this time if this is simply diffuse large B-cell lymphoma, double-hit lymphoma, or something more aggressive like Burkitt's. FISH and cytogenetics are currently pending. After surgery, they had difficulty extubating the patient and she remains intubated at this time. REVIEW OF SYSTEMS: Ten-point review of systems unable to be obtained as the patient is currently intubated. PAST MEDICAL HISTORY: Sjogren's, lupus, celiac disease, hypertension, hypothyroidism, obesity. PAST SURGICAL HISTORY: Tonsillectomy, breast biopsy, lung biopsy. FAMILY HISTORY: Thyroid cancer in her mother, rectal cancer in her son, brother with sarcoidosis. SOCIAL HISTORY: Nonsmoker, no alcohol use as per history. ALLERGIES: NO KNOWN MEDICATION ALLERGIES. MEDICATIONS: Reviewed. PHYSICAL EXAMINATION: VITAL SIGNS: Pulse 99, respirations 29, saturating 96% on mechanical ventilation, blood pressure 87/49. GENERAL APPEARANCE: The patient is lying in bed, intubated. HEENT: Neck is supple, very large and difficult to palpate any lymphadenopathy due to obesity. RESPIRATIONS: Rhonchorous and decreased breath sounds. CARDIOVASCULAR: Regular rhythm and rate. No murmur. ABDOMEN: Extremely obese, but soft. EXTREMITIES: 1 to 2+ edema in bilateral lower extremities. LYMPHATICS: Unable to palpate any cervical, axillary, or inguinal lymphadenopathy; however, exam is limited due to obesity. NEUROLOGIC: The patient is currently sedated. LABORATORY DATA: White blood cells 8.7, hemoglobin 12.7, platelets 145, 1% metamyelocytes, 1% myelocytes. Sodium 128, potassium 4.3, chloride 96, BUN 12, creatinine 0.73. LDH 986 on admission, currently at 1175. Uric acid 5.0. IMAGING DATA: CTA of the chest dated on October 29, 2018 shows extrinsic mass effect upon the right upper lobe pulmonary arteries with complete obliteration of the posterior segment of the right upper lobe pulmonary artery. Extensive mediastinal adenopathy with soft tissue mass surrounding the trachea and thoracic esophagus. Large AP window and prevascular lymph nodes as well as bilateral hilar lymph nodes with a moderate layering right pleural effusion and masslike consolidation within the right lower lobe and a small left pleural effusion. ASSESSMENT AND PLAN: A 67-year-old female with newly diagnosed B-cell lymphoma. The patient has extensive thoracic disease and malignant pleural effusion, which has required placement of a PleurX catheter. The patient is currently intubated and unable to consent to treatment. I discussed the diagnosis with the patient over the phone and made a consent to the treatment. It is unclear the exact subtype of lymphoma, however, due to extreme illness and urgent need for treatment, I will initiate chemotherapy with R-CHOP. Follow awaiting further testing. We will start her on allopurinol for tumor lysis prophylaxis. Monitor uric acid levels or need rasburicase. She is at very high risk for tumor lysis given her extreme tumor burden and very high LDH. Recommend to continue aggressive IV fluid at this time. If the pleural fluid FISH and cytogenetic testing showed double-hit lymphoma or Burkitt's, then her treatment will need to be changed, however, at this time R-CHOP should be sufficient. Her echocardiogram shows a normal EF and so she can receive Adriamycin. She received vincristine and Cytoxan today while awaiting her echocardiogram, which has now came back normal, so she will receive Adriamycin tomorrow. Rituximab is a drop shipment, so we will not receive until Wednesday, and we will give to her then. She will need further staging with a CT abdomen and pelvis with contrast once she is stable as well as a bone marrow biopsy, potentially an LP pending the studies. Job ID: [id number]
--- NOTE | 2018-11-07 10:52 | PRG ---
DATE OF SERVICE: 11/07/2018 SERVICE: Pulmonary Medicine. INTERVAL HISTORY: The patient is doing really well from respiratory standpoint. Breathing comfortably. No complaints of chest discomfort, shortness of breath, nausea, or vomiting. She got extubated yesterday. She has had absolutely no respiratory issues since then. She is tolerating the Lasix and the IV fluids beautifully. PHYSICAL EXAMINATION: VITAL SIGNS: Afebrile, pulse 96, blood pressure 125/68, respirations 17, saturation 97% on 1 L nasal cannula. GENERAL: The patient is awake and alert, in no apparent distress. LUNGS: Decent air entry. I hear some dependent crackles, but there is no wheezing or rhonchi otherwise. HEART: Normal rate and regular. ABDOMEN: Soft, nontender, nondistended. Bowel sounds are positive. MUSCULOSKELETAL: No cyanosis or clubbing. No pitting in the bilateral lower extremities. NEUROLOGIC: Grossly nonfocal. LABORATORY DATA: WBC 15.6, hemoglobin 10.5, and platelets 129,000. Her neutrophil count and band count are increasing slightly. INR 1.1. Sodium 135 and up-trending. BUN 22, creatinine 0.64. Bicarb has fallen back into the normal range. Phosphorus is 2.7 and normal. LDH is gently downtrending. ASSESSMENT: 1. Acute hypoxic respiratory failure, improving. 2. Malignant effusion, status post PleurX catheter placement on the right. 3. Lymphoma. 4. Sjogren disease. 5. Tumor lysis syndrome, mild. DISCUSSION AND PLAN: The patient is stable for transition out of the ICU to the Oncology floor. We are going to work on mobilizing her through time. I will back off on her IV fluids further and back off on her Lasix to once daily. Pulmonary will continue to follow. At this point, she does not have any infectious nidus. As such, we will continue following this white blood cell count and band count through time. I have a very low threshold for panculture and empiric antibiotics. Job ID: [id number]
[2018-11-07] MEDS ORDERED: Enoxaparin Sodium 40 MG/0.4 ML SYRINGE SC SCH (11:15)
[2018-11-07] MEDS: methylPREDNISolone Sod Succ/PF 125 MG/2 ML VIAL IVP SCH (11:36)
[2018-11-07] MEDS: Azithromycin 500 MG in Sodium Chloride 0.9% 250 ML 250 ML IVPB SCH (15:33)
[2018-11-08] MEDS: Sodium Chloride 0.45% 1,000 ML IV SCH (01:33)
[2018-11-08] MEDS: Cefepime 2 GM in Sodium Chloride 0.9% 100 ML IVPB SCH (05:08)
[2018-11-08] MEDS: Levothyroxine Sodium 100 MCG TAB PO SCH (05:15)
[2018-11-08] MEDS: Furosemide 40 MG/4 ML VIAL SLOW IVP SCH (05:15)
[2018-11-08 05:54] LABS: Anion Gap 10 mmol/L (10-20); BUN (Urea Nitrogen) 24 mg/dL (9.8-20.1); Calc. Creatinine Clearance 169 mL/min (70-130); Calcium 8.7 mg/dL (7.8-10.44); Carbon Dioxide 28 mmol/L (23-31); Chloride 101 mmol/L (98-107); Estimated GFR-MDRD Greater than 90; Glucose 128 mg/dL (80-115); Magnesium 2.3 mg/dL (1.6-2.6); Phosphorus 2.6 mg/dL (2.3-4.7); Potassium 4.1 mmol/L (3.5-5.1); Sodium 135 mmol/L (136-145)
[2018-11-08 06:00] LABS: Band 13 % (5-11); Hemoglobin 10.4 g/dL (12.0-16.0); Lymphocytes 1 % (21-51); MDiff Complete? YES; Mean Corpuscular HGB CONC 33.3 g/dL (32.0-36.0); Mean Corpuscular Hemoglobin 29.3 pg (27.0-31.0); Mean Platelet Volume 8.1 fL (7.4-10.4); Neutrophil 86 % (42-75); Platelet Count 122 thou/uL (130-400); RBC Distribution Width 14.2 % (11.5-14.5); Red Blood Cell (RBC) Count 3.57 mill/uL (4.20-5.40); White Blood Cell (WBC) Count 15.6 thou/uL (4.8-10.8)
--- NOTE | 2018-11-08 09:25 | RAD ---
PORTABLE CHEST: Date: 11/08/18 HISTORY: Effusion. COMPARISON: 11/06/18. FINDINGS: Bilateral effusions and bibasilar atelectasis, more prominent in the right lung base. The MediPort catheter tip has changed positions and now overlies the mid chest in the region of the j unction of the innominate vein and SVC. Right jugular line has tip overlying the SVC/right atrium and appears to have been advanced. ET tube and NG tube have been removed. IMPRESSION: Bilateral effusions and bibasilar atelectasis. The findings are more prominent on the right; however, the left lung base findings have increased when compared to the 11/06/18 study. POS: [facility]
[2018-11-08] MEDS: Enoxaparin Sodium 40 MG/0.4 ML SYRINGE SC SCH (12:37)
[2018-11-08] MEDS: Famotidine 20 MG TAB PO SCH ×2 (12:39→19:53)
[2018-11-08] MEDS: Allopurinol 300 MG TAB PO SCH ×2 (12:39→19:54)
[2018-11-08] MEDS: methylPREDNISolone Sod Succ/PF 125 MG/2 ML VIAL IVP SCH (12:40)
--- NOTE | 2018-11-08 15:19 | CT ---
CT GUIDED RIGHT ILIAC BONE MARROW ASPIRATION AND BIOPSY: CLINICAL HISTORY: Lymphoma. PROCEDURE: The procedure including the risks and complications were explained to the patient, and informed conse nt was obtained. The patient was placed on the CT scan table in the prone position. Noncontrasted CT images were obtained through the pelvis. An area was marked overlying the right nathen c bone, and the area was meticulously prepped and draped in usual sterile fashion. The skin and subcutaneous tissues were infiltrated with buffered 1% lidocaine for local anesthesia. After a small skin incision was made, an 11-gauge needle was advanced and positioning was confirmed w ith axial CT images. Approximately milliliters of bone marrow aspirate was obtained. The needle was then further advanced, and a bone marrow biopsy was performed. The needle was removed, and hemostasis was achieved with direct pressure. The patient tolerated the procedure well and without immediate complication. The patient was transported to radiology nurses holding area for further monitoring monica or to discharge. IMPRESSION: Technically successful percutaneous bone marrow aspiration and biopsy. Pathology results are pending.
[2018-11-08] MEDS ORDERED: Polyethylene Glycol 3350 17 GM Packet PO PRN (16:37)
--- NOTE | 2018-11-08 16:39 | PDOC.HOSPP ---
- Subjective Encounter Date: 11/08/18 Encounter Time: 16:37 Subjective: Ms. Nicole was seen today in follow-up of malignant pleural effusion. She does not have any complaints today. She denies shortness of breath. She is concerned about being constipated. - Objective Vital Signs & Weight: Vital Signs (12 hours) Temp Pulse Resp BP Pulse Ox 11/08/18 14:52 93 16 91 L 11/08/18 08:42 97.4 F L 96 18 124/65 96 11/08/18 08:00 96 11/08/18 07:38 98 11/08/18 07:37 94 16 98 Weight Admit Weight 267 lb 3.2 oz Weight 272 lb Most Recent Monitor Data Heart Rate from ECG 97 NIBP 151/71 NIBP BP-Mean 97 Respiration from ECG 17 SpO2 92 I&O: 11/07/18 11/08/18 11/09/18 06:59 06:59 06:59 Intake Total 2514 1611 Output Total 9861 7508 Balance -6977 -7125 Result Diagrams: 11/08/18 05:10 11/08/18 05:10 ROS - Medication Medications: Active Medications Generic Name Dose Route Start Last Admin Trade Name Freq PRN Reason Stop Dose Admin Albuterol/Ipratropium 3 ml 11/03/18 19:00 11/08/18 14:52 Duoneb NEB 3 ml [id number] GALLO Administration Allopurinol 300 mg 11/04/18 09:00 11/08/18 12:39 Zyloprim PO 300 mg BID GALLO Administration Enoxaparin Sodium 40 mg 11/08/18 09:00 11/08/18 12:37 Lovenox SC Not Given 0900 GALLO Famotidine 20 mg 11/03/18 21:00 11/08/18 12:39 Pepcid PO 20 mg BID GALLO Administration Levothyroxine Sodium 100 mcg 11/04/18 06:00 11/08/18 05:15 Synthroid PO 100 mcg 0600 GALLO Administration Methylprednisolone Sodium Succinate 80 mg 11/05/18 12:00 11/08/18 12:40 Solu-Medrol IVP 11/09/18 12:01 80 mg 1200 GALLO Administration Senna/Docusate Sodium 2 tab 11/03/18 14:53 11/08/18 12:48 Senokot S PO 2 tab BIDPRN PRN Administration Constipation Sterile Water 1 ml 11/05/18 11:16 11/08/18 12:40 Bacteriostatic Water FS 1 ml PRN PRN Administration RECONSTITUTION - Exam Eye: PERRL, anicteric sclera Neck: supple, symmetric, no JVD, no thyromegaly Heart: RRR, no murmur, no gallops, no rubs, normal peripheral pulses Respiratory: no wheezes, no rales, rhonchi (+ scatter rhonchi, and decreased breath sounds at the bases) Gastrointestinal: soft, non-tender, non-distended, normal bowel sounds, no palpable masses Extremities: no cyanosis, no clubbing, 1+ LE edema (+ bilateral lower exrtemity edema) Hosp A/P (1) Malignant pleural effusion Code(s): J91.0 - MALIGNANT PLEURAL EFFUSION Status: Acute (2) Lymphoma Status: Acute Qualifiers: Lymphoma type: non-Hodgkin Non-Hodgkin lymphoma type: B-cell B-cell lymphoma type: diffuse large B-cell Lymphoma site: intrathoracic nodes Qualified Code(s): C83.32 - Diffuse large B-cell lymphoma, intrathoracic lymph nodes (3) Hypertension Code(s): I10 - ESSENTIAL (PRIMARY) HYPERTENSION Status: Acute (4) Sjogren's disease Code(s): M35.00 - SICCA SYNDROME, UNSPECIFIED Status: Chronic (5) Hypothyroidism Code(s): E03.9 - HYPOTHYROIDISM, UNSPECIFIED Status: Chronic (6) Tumor lysis syndrome Code(s): E88.3 - TUMOR LYSIS SYNDROME Status: Chronic - Plan * Malignant Pleural Effusion-s/p PleurX Cather placement * Acute respiratory failure- resolved * Lymphoma- she is s/p bone marrow biopsy- and continue chemotherapy as per Oncology * Mild tumor Lysis syndrome- stable- * HTN- Blood pressure is stable * Hypothyroidism- she is clinically euthyroid
--- NOTE | 2018-11-08 16:48 | PDOC.MOPN ---
Interval History: Pt feeling much better today and denies any SOB at the moment. CT-A/P showed no disease other than a nonspecific 9 mm aortocaval node. - Vital Signs Vital Signs: Vital Signs (12 hours) Temp Pulse Resp BP Pulse Ox 11/08/18 14:52 93 16 91 L 11/08/18 08:42 97.4 F L 96 18 124/65 96 11/08/18 08:00 96 11/08/18 07:38 98 11/08/18 07:37 94 16 98 Weight Admit Weight 267 lb 3.2 oz Weight 272 lb Most Recent Monitor Data Heart Rate from ECG 97 NIBP 151/71 NIBP BP-Mean 97 Respiration from ECG 17 SpO2 92 - Physical Exam General: Alert, Oriented x3, Cooperative, No acute distress HEENT: Atraumatic, PERRLA, EOMI, Mucous membr. moist/pink Lungs: Other (reduced BS at bases) Cardiovascular: Regular rate, Normal S1, Normal S2, No murmurs, Gallops, Rubs Abdomen: Normal bowel sounds, Soft, No tenderness Extremities: Other (2+ LE edema) Skin: No rashes, No breakdown, No significant lesion Neurological: Cranial nerves 3-12 NL Psych/Mental Status: Mental status NL, Mood NL - Labs Result Diagrams: 11/08/18 05:10 11/08/18 05:10 Lab results: Laboratory Results - last 24 hr 11/08/18 05:10: WBC 15.6 H, RBC 3.57 L, Hgb 10.4 L, Hct 31.4 L, MCV 88.0, MCH 29.3, MCHC 33.3, RDW 14.2, Plt Count 122 L, MPV 8.1, Neutrophils % (Manual) 86 H , Band Neuts % (Manual) 13 H, Lymphocytes % (Manual) 1 L 11/08/18 05:10: Sodium 135 L, Potassium 4.1, Chloride 101, Carbon Dioxide 28, Anion Gap 10, BUN 24 H, Creatinine 0.65, Estimated GFR (MDRD) Greater than 90, Glucose 128 H, Calcium 8.7, Phosphorus 2.6, Magnesium 2.3 11/08/18 05:10: Lactate Dehydrogenase 751 H 11/08/18 05:10: Uric Acid 3.5 A/P - Problem (1) Lymphoma Current Visit: Yes Status: Acute Qualifiers: Lymphoma type: non-Hodgkin Non-Hodgkin lymphoma type: B-cell B-cell lymphoma type: diffuse large B-cell Lymphoma site: intrathoracic nodes Qualified Code(s): C83.32 - Diffuse large B-cell lymphoma, intrathoracic lymph nodes (2) Malignant pleural effusion Current Visit: Yes Code(s): J91.0 - MALIGNANT PLEURAL EFFUSION Status: Acute - Plan Plan: # 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 Also received Neulasta -- respiratory status much improved and TLS labs stable will give Rituxan once received BMBx to complete staging - consider LP pending results respiratory care as per Pulm
--- NOTE | 2018-11-08 17:55 | PRG ---
DATE OF SERVICE: 11/08/2018 SERVICE: Pulmonary Medicine. INTERVAL HISTORY: The patient is doing beautifully from respiratory standpoint. She has no complaints of nausea, vomiting, or shortness of breath. Otherwise, there has been no interval change to her condition. She has transitioned out of the ICU yesterday. She slept fairly well last night. PHYSICAL EXAMINATION: VITAL SIGNS: Afebrile, pulse 91, blood pressure 133/69, respirations 18, saturation 95% on 2.5 L nasal cannula. GENERAL: The patient is awake and alert, in no apparent distress. LUNGS: Minimal dependent crackles are noted. Decreased air entry at the right base. HEART: Normal rate, regular. ABDOMEN: Soft, nontender, nondistended. Bowel sounds are positive. MUSCULOSKELETAL: No cyanosis or clubbing. No pitting in the bilateral lower extremities. NEUROLOGIC: Grossly nonfocal. LABORATORY DATA: WBC 15.6, hemoglobin 10.4, platelets 122,000, roughly stable. Sodium 135. Basic metabolic profile, magnesium and phosphorus are unremarkable. LDH 751. IMAGING DATA: Chest x-ray demonstrates bilateral effusions and bibasilar atelectasis is present, more prominent on the right. ASSESSMENT: 1. Acute hypoxic respiratory failure, resolving. 2. Malignant effusion, status post PleurX catheter placement on the right. 3. Lymphoma. 4. Sjogren disease. 5. Tumor lysis syndrome, mild, resolving. DISCUSSION AND PLAN: At this point, the patient seems to be passed that window of danger for her for tumor lysis. As such, we are going to change our Lasix over to p.o., and interrupt her IV fluids. Antibiotics will be interrupted as the patient has had a total course. The patient has no additional requirements for pulmonary or critical care opinion. I will sign off. Please call with additional questions or concerns. Job ID: [id number] MTDD
[2018-11-09 05:05] LABS: Phosphorus 2.7 mg/dL (2.3-4.7)
[2018-11-09 05:09] LABS: Anion Gap 9 mmol/L (10-20); BUN (Urea Nitrogen) 23 mg/dL (9.8-20.1); Calc. Creatinine Clearance 185 mL/min (70-130); Calcium 8.4 mg/dL (7.8-10.44); Carbon Dioxide 31 mmol/L (23-31); Chloride 104 mmol/L (98-107); Estimated GFR-MDRD Greater than 90; Glucose 109 mg/dL (80-115); Potassium 3.9 mmol/L (3.5-5.1); Sodium 140 mmol/L (136-145); Uric Acid 2.5 mg/dL (2.6-6.0)
[2018-11-09 05:26] LABS: Band 4 % (5-11); Hemoglobin 9.9 g/dL (12.0-16.0); Lymphocytes 4 % (21-51); MDiff Complete? YES; Mean Corpuscular HGB CONC 34.1 g/dL (32.0-36.0); Mean Corpuscular Hemoglobin 30.1 pg (27.0-31.0); Mean Corpuscular Volume 88.2 fL (78.0-98.0); Mean Platelet Volume 8.1 fL (7.4-10.4); Neutrophil 92 % (42-75); Platelet Count 98 thou/uL (130-400); Platelet Morphology Comment Appears Decreased; Red Blood Cell (RBC) Count 3.29 mill/uL (4.20-5.40); White Blood Cell (WBC) Count 8.6 thou/uL (4.8-10.8)
[2018-11-09] MEDS: Levothyroxine Sodium 100 MCG TAB PO SCH (05:28)
[2018-11-09] MEDS: Furosemide 40 MG TAB PO SCH (08:35)
[2018-11-09] MEDS: Allopurinol 300 MG TAB PO SCH ×2 (08:35→21:24)
[2018-11-09] MEDS: Famotidine 20 MG TAB PO SCH ×2 (08:35→21:24)
[2018-11-09] MEDS: Enoxaparin Sodium 40 MG/0.4 ML SYRINGE SC SCH (09:30)
[2018-11-09 09:49] LABS: Actual Bicarbonate (HCO3a) 21.8 mEq/L (22-28); Analyzer IN Cardio OR; CO2 Tension 52.5 mmHg (35.0-45.0); Calcium, Ionized 1.24 mmol/L (1.12-1.30); Carboxyhemoglobin (COHb) 0.6 gm% (0.0-3.0); Hemoglobin (Hb) 12.8 g/dL (12.0-16.0); Potassium - ABG Lab 4.27 mmol/L (3.70-5.30)
[2018-11-09 09:50] LABS: Puncture Site ALINE; pH, Arterial 7.24 (7.35-7.45)
--- NOTE | 2018-11-09 10:13 | PDOC.MOPN ---
Interval History: feeling much better today. No SOB, complaints. - Vital Signs Vital Signs: Vital Signs (12 hours) Temp Pulse Resp BP Pulse Ox 11/09/18 08:16 98 F 85 18 123/60 95 11/09/18 01:58 95 Weight Admit Weight 267 lb 3.2 oz Weight 272 lb Most Recent Monitor Data Heart Rate from ECG 97 NIBP 151/71 NIBP BP-Mean 97 Respiration from ECG 17 SpO2 92 - Physical Exam General: Alert, Oriented x3, No acute distress HEENT: Atraumatic, PERRLA, EOMI, Mucous membr. moist/pink Lungs: Other (diminished, pleurx cath) Abdomen: Normal bowel sounds, Soft, No tenderness, No hepatospenomegaly, No masses Extremities: No clubbing, No cyanosis, No edema, Normal pulses, No tenderness/ swelling Skin: No rashes, No breakdown, No significant lesion Neurological: Normal gait Psych/Mental Status: Mental status NL - Labs Result Diagrams: 11/09/18 04:21 11/09/18 03:30 Lab results: Laboratory Results - last 24 hr 11/09/18 04:21: Lactate Dehydrogenase 590 H 11/09/18 04:21: WBC 8.6, RBC 3.29 L, Hgb 9.9 L, Hct 29.1 L, MCV 88.2, MCH 30.1, MCHC 34.1, RDW 14.0, Plt Count 98 L, MPV 8.1, Neutrophils % (Manual) 92 H, Band Neuts % (Manual) 4 L, Lymphocytes % (Manual) 4 L, Plt Morphology Comment Appears Decreased L 11/09/18 03:30: Phosphorus 2.7 11/09/18 03:30: Sodium 140, Potassium 3.9, Chloride 104, Carbon Dioxide 31, Anion Gap 9 L, BUN 23 H, Creatinine 0.59 L, Estimated GFR (MDRD) Greater than 90, Glucose 109, Uric Acid 2.5 L, Calcium 8.4 11/04/18 10:17: Specimen Type ARTERIAL, Puncture Site MARK, Bicarbonate Actual 21.8 L, ABG pH 7.24 L*, ABG pCO2 52.5 H, ABG pO2 106.0 H, ABG O2 Sat Calc/Anabella 97.6, ABG O2 Content 17.6 L, ABG Base Excess -6.0 L, ABG Hematocrit 38.0, ABG Hemoglobin 12.8, ABG Oxyhemoglobin 97.0, ABG Carboxyhemoglobin 0.6, ABG Methemoglobin 0.00 L, ABG Deoxyhemoglobin 2.4, Sodium 127 L, Potassium 4.27, Chloride 97 L, Ionized Calcium 1.24, Mode of Support OR ABG Status: lab reviewed by me A/P - Problem (1) Malignant pleural effusion Current Visit: Yes Code(s): J91.0 - MALIGNANT PLEURAL EFFUSION Status: Acute (2) Lymphoma Current Visit: Yes Status: Acute Qualifiers: Lymphoma type: non-Hodgkin Non-Hodgkin lymphoma type: B-cell B-cell lymphoma type: diffuse large B-cell Lymphoma site: intrathoracic nodes Qualified Code(s): C83.32 - Diffuse large B-cell lymphoma, intrathoracic lymph nodes - Plan Plan: # Stage IV DLBCL -- C1D6 of R-CHOP: received Vincristine and Cytoxan on D1, Adriamycin D2, Rituxan today. Also received Neulasta -- respiratory status much improved and TLS labs stable respiratory care as per Pulm
[2018-11-09] MEDS ORDERED: RITUXIMAB IVPB SCH ×2 (10:30→10:45)
[2018-11-09] MEDS ORDERED: diphenhydrAMINE 50 MG in Sodium Chloride 0.9% 50 ML IVPB SCH (10:30)
[2018-11-09] MEDS ORDERED: Acetaminophen 500 MG TAB PO SCH (10:30)
[2018-11-09] MEDS ORDERED: SODIUM CHLORIDE 0.9% IVPB SCH ×2 (10:30→10:45)
[2018-11-09] MEDS ORDERED: Rituximab 500 MG, Rituximab 300 MG in Sodium Chloride 0.9% 500 ML IVPB SCH (11:00)
--- NOTE | 2018-11-09 12:22 | CT ---
CT GUIDED RIGHT ILIAC BONE MARROW ASPIRATION AND BIOPSY: CLINICAL HISTORY: Lymphoma. PROCEDURE: The procedure including the risks and complications were explained to the patient, and informed conse nt was obtained. The patient was placed on the CT scan table in the prone position. Noncontrasted CT images were obtained through the pelvis. An area was marked overlying the right nathen c bone, and the area was meticulously prepped and draped in usual sterile fashion. The skin and subcutaneous tissues were infiltrated with buffered 1% lidocaine for local anesthesia. After a small skin incision was made, an 11-gauge needle was advanced and positioning was confirmed w ith axial CT images. Approximately milliliters of bone marrow aspirate was obtained. The needle was then further advanced, and a bone marrow biopsy was performed. The needle was removed, and hemostasis was achieved with direct pressure. The patient tolerated the procedure well and without immediate complication. The patient was transported to radiology nurses holding area for further monitoring monica or to discharge. IMPRESSION: Technically successful percutaneous bone marrow aspiration and biopsy. Pathology results are pending. Transcribed Date/Time: 11/09/2018 12:22 PM
[2018-11-09] MEDS: methylPREDNISolone Sod Succ/PF 125 MG/2 ML VIAL IVP SCH (13:31)
--- NOTE | 2018-11-09 18:04 | PDOC.HOSPP ---
- Subjective Encounter Date: 11/09/18 Encounter Time: 18:03 Subjective: Ms. Nicole was seen today in follow-up of malignant pleural effusion. She does not have any complaints today. She has been up moving around in her room. She denies chest pain or dyspnea. - Objective Vital Signs & Weight: Vital Signs (12 hours) Temp Pulse Pulse Resp BP BP BP 11/09/18 15:23 98 F 85 16 131/63 11/09/18 09:17 94 138/73 11/09/18 08:16 98 F 85 18 123/60 Pulse Ox Pulse Ox 11/09/18 15:23 95 11/09/18 09:17 92 L 11/09/18 08:16 95 Weight Admit Weight 267 lb 3.2 oz Weight 267 lb Most Recent Monitor Data Heart Rate from ECG 97 NIBP 151/71 NIBP BP-Mean 97 Respiration from ECG 17 SpO2 92 I&O: 11/08/18 11/09/18 11/10/18 06:59 06:59 06:59 Intake Total 1611 600 Output Total 3390 4050 Balance -9244 -9577 Result Diagrams: 11/09/18 04:21 11/09/18 03:30 ROS - Medication Medications: Active Medications Generic Name Dose Route Start Last Admin Trade Name Freq PRN Reason Stop Dose Admin Acetaminophen 1,000 mg 11/09/18 10:30 11/09/18 13:43 Tylenol PO 1,000 mg WILLCALL GALLO Administration Albuterol/Ipratropium 3 ml 11/03/18 19:00 11/09/18 15:05 Duoneb NEB Not Given [id number] GALLO Allopurinol 300 mg 11/04/18 09:00 11/09/18 08:35 Zyloprim PO 300 mg BID GALLO Administration Famotidine 20 mg 11/03/18 21:00 11/09/18 08:35 Pepcid PO 20 mg BID GALLO Administration Furosemide 40 mg 11/09/18 07:30 11/09/18 08:35 Lasix PO 40 mg DAILY-AC GALLO Administration Diphenhydramine HCl 50 mg/ 51 mls @ 153 mls/hr 11/09/18 10:30 11/09/18 13:45 Sodium Chloride IVPB 51 mls WILLCALL GALLO Administration Rituximab 500 mg/ Rituximab 580 mls @ 0 mls/hr 11/09/18 11:00 11/09/18 15:30 300 mg/ Sodium Chloride IVPB 580 mls WILLCALL GALLO Administration As Directed Levothyroxine Sodium 100 mcg 11/04/18 06:00 11/09/18 05:28 Synthroid PO 100 mcg 0600 GALLO Administration Senna/Docusate Sodium 2 tab 11/03/18 14:53 11/08/18 12:48 Senokot S PO 2 tab BIDPRN PRN Administration Constipation Sterile Water 1 ml 11/05/18 11:16 11/08/18 12:40 Bacteriostatic Water FS 1 ml PRN PRN Administration RECONSTITUTION - Exam Eye: PERRL, anicteric sclera Heart: RRR, no murmur, no gallops, no rubs, normal peripheral pulses Respiratory: CTAB, no wheezes (decreased breath sounds at the bases), no rales, no ronchi Gastrointestinal: soft, non-tender, non-distended, normal bowel sounds Extremities: 1+ LE edema (+ bilateral lower extremity edema) Hosp A/P (1) Malignant pleural effusion Code(s): J91.0 - MALIGNANT PLEURAL EFFUSION Status: Acute (2) Lymphoma Status: Acute Qualifiers: Lymphoma type: non-Hodgkin Non-Hodgkin lymphoma type: B-cell B-cell lymphoma type: diffuse large B-cell Lymphoma site: intrathoracic nodes Qualified Code(s): C83.32 - Diffuse large B-cell lymphoma, intrathoracic lymph nodes (3) Hypertension Code(s): I10 - ESSENTIAL (PRIMARY) HYPERTENSION Status: Acute (4) Sjogren's disease Code(s): M35.00 - SICCA SYNDROME, UNSPECIFIED Status: Chronic (5) Hypothyroidism Code(s): E03.9 - HYPOTHYROIDISM, UNSPECIFIED Status: Chronic (6) Tumor lysis syndrome Code(s): E88.3 - TUMOR LYSIS SYNDROME Status: Chronic - Plan * Malignant Pleural Effusion-s/p PleurX Cather placement * Lymphoma- she is s/p bone marrow biopsy- She is receiving Rituxan today * Mild tumor Lysis syndrome- resolving * HTN- Blood pressure is stable * Hypothyroidism- she is clinically euthyroid * Anticipate home tomorrow
[2018-11-10 05:20] LABS: Phosphorus 3.1 mg/dL (2.3-4.7)
[2018-11-10 05:23] LABS: Anion Gap 9 mmol/L (10-20); BUN (Urea Nitrogen) 21 mg/dL (9.8-20.1); Calc. Creatinine Clearance 195 mL/min (70-130); Calcium 8.4 mg/dL (7.8-10.44); Carbon Dioxide 33 mmol/L (23-31); Chloride 101 mmol/L (98-107); Estimated GFR-MDRD Greater than 90; Glucose 97 mg/dL (80-115); Potassium 3.7 mmol/L (3.5-5.1); Sodium 139 mmol/L (136-145); Uric Acid Less than 2.0 mg/dL (2.6-6.0)
[2018-11-10 05:46] LABS: Band 2 % (5-11); Hemoglobin 9.9 g/dL (12.0-16.0); Lymphocytes 7 % (21-51); MDiff Complete? YES; Mean Corpuscular HGB CONC 33.4 g/dL (32.0-36.0); Mean Corpuscular Hemoglobin 29.6 pg (27.0-31.0); Mean Corpuscular Volume 88.6 fL (78.0-98.0); Mean Platelet Volume 8.2 fL (7.4-10.4); Neutrophil 90 % (42-75); Platelet Count 92 thou/uL (130-400); Platelet Morphology Comment Appears Decreased; RBC Distribution Width 13.9 % (11.5-14.5); RBC Morphology Normal; Reactive Lymphocytes 1 % (0-10); Red Blood Cell (RBC) Count 3.35 mill/uL (4.20-5.40); White Blood Cell (WBC) Count 2.6 thou/uL (4.8-10.8)
[2018-11-10] MEDS: Levothyroxine Sodium 100 MCG TAB PO SCH (06:06)
[2018-11-10] MEDS: Furosemide 40 MG TAB PO SCH (08:31)
[2018-11-10] MEDS: Allopurinol 300 MG TAB PO SCH (08:31)
[2018-11-10] MEDS: Famotidine 20 MG TAB PO SCH (08:32)
[2018-11-10 08:40] VITALS: BP 162/75; TEMP 98
[2018-11-10] MEDS ORDERED: Losartan 25 MG TAB PO SCH (09:00)
--- NOTE | 2018-11-10 09:48 | PDOC.MOPN ---
Interval History: No complaints. Feels well and wants to go home. - Vital Signs Vital Signs: Vital Signs (12 hours) Temp Pulse Resp BP Pulse Ox 11/10/18 07:45 98.0 F 76 18 162/75 H 95 Weight Admit Weight 267 lb 3.2 oz Weight 267 lb Most Recent Monitor Data Heart Rate from ECG 97 NIBP 151/71 NIBP BP-Mean 97 Respiration from ECG 17 SpO2 92 - Physical Exam General: Alert, Oriented x3, No acute distress HEENT: Atraumatic, PERRLA, EOMI, Mucous membr. moist/pink Lungs: Clear to auscultation, Normal air movement Cardiovascular: Regular rate, Normal S1, Normal S2, No murmurs, Gallops, Rubs Abdomen: Normal bowel sounds, Soft, No tenderness, No hepatospenomegaly, No masses Extremities: No clubbing, No cyanosis, No edema, Normal pulses, No tenderness/ swelling Skin: No rashes, No breakdown, No significant lesion Neurological: Normal gait, Normal speech, Strength at 5/5 X4 ext, Normal tone, Sensation intact, Cranial nerves 3-12 NL, Reflexes 2+ Psych/Mental Status: Mental status NL, Mood NL - Labs Result Diagrams: 11/10/18 04:30 11/10/18 04:30 Lab results: Laboratory Results - last 24 hr 11/10/18 04:30: Phosphorus 3.1 11/10/18 04:30: Lactate Dehydrogenase 499 H 11/10/18 04:30: WBC 2.6 L, RBC 3.35 L, Hgb 9.9 L, Hct 29.6 L, MCV 88.6, MCH 29.6 , MCHC 33.4, RDW 13.9, Plt Count 92 L, MPV 8.2, Neutrophils % (Manual) 90 H, Band Neuts % (Manual) 2 L, Lymphocytes % (Manual) 7 L, Reactive Lymphs % 1, Plt Morphology Comment Appears Decreased L, RBC Morph Comment Normal 11/10/18 04:30: Sodium 139, Potassium 3.7, Chloride 101, Carbon Dioxide 33 H, Anion Gap 9 L, BUN 21 H, Creatinine 0.55 L, Estimated GFR (MDRD) Greater than 90, Glucose 97, Uric Acid Less than 2.0 L, Calcium 8.4 11/04/18 10:17: Specimen Type ARTERIAL, Puncture Site MARK, Bicarbonate Actual 21.8 L, ABG pH 7.24 L*, ABG pCO2 52.5 H, ABG pO2 106.0 H, ABG O2 Sat Calc/Anabella 97.6, ABG O2 Content 17.6 L, ABG Base Excess -6.0 L, ABG Hematocrit 38.0, ABG Hemoglobin 12.8, ABG Oxyhemoglobin 97.0, ABG Carboxyhemoglobin 0.6, ABG Methemoglobin 0.00 L, ABG Deoxyhemoglobin 2.4, Sodium 127 L, Potassium 4.27, Chloride 97 L, Ionized Calcium 1.24, Mode of Support OR ABG Status: lab reviewed by me A/P - Problem (1) Malignant pleural effusion Current Visit: Yes Code(s): J91.0 - MALIGNANT PLEURAL EFFUSION Status: Acute (2) Lymphoma Current Visit: Yes Status: Acute Qualifiers: Lymphoma type: non-Hodgkin Non-Hodgkin lymphoma type: B-cell B-cell lymphoma type: diffuse large B-cell Lymphoma site: intrathoracic nodes Qualified Code(s): C83.32 - Diffuse large B-cell lymphoma, intrathoracic lymph nodes - Plan Plan: Ok to dc home from my perspective Follow-up Dr. Sorto on 11/24/18 at 1:45 next chemo Wednesday11/25/18 Netropenic precautions call for fever.
[2018-11-10 13:01] VITALS: BMI 48.8
--- NOTE | 2018-11-10 21:32 | DIS ---
DATE OF ADMISSION: 11/03/2018 DATE OF DISCHARGE: 11/10/2018 ADMISSION DIAGNOSES: 1. Acute respiratory failure with hypoxia. 2. Pneumonia. 3. Parapneumonic effusion. 4. Mediastinal lymphadenopathy. 5. Hyponatremia. 6. History of hypertension. 7. Hypothyroidism. 8. New diagnosis of aggressive lymphoma. 9. Obesity. 10. History of Sjogren syndrome. 11. History of celiac disease. 12. History of lupus. 13. Liver cirrhosis, most likely due to nonalcoholic steatohepatitis. FINAL DIAGNOSES: 1. Malignant pleural effusion secondary to lymphoma. 2. Non-Hodgkin's lymphoma, diffuse large B-cell with intrathoracic lymph nodes. 3. Hypertension. 4. Sjogren's disease. 5. Hypothyroidism. 6. Tumor lysis syndrome. 7. Acute respiratory failure with hypoxia. 8. Hyponatremia. 9. Hypothyroidism. 10. New diagnosis of aggressive lymphoma. 11. History of Sjogren syndrome. 12. History of celiac disease. 13. History of lupus. 14. Liver cirrhosis, most likely due to nonalcoholic steatohepatitis. CONSULTANTS: 1. Dr. Angelo Mercado, Pulmonary/Critical Care. 2. Dr. Jeremie Adair, Cardiovascular Surgery. 3. Dr. Won Thomas, Pulmonary/Critical Care. 4. Dr. Richard Sorto, Oncology Service. PROCEDURES PERFORMED: 1. Left internal jugular vein MediPort placement. 2. Right PleurX catheter placement with evacuation of 2 L of fluid. 3. Bone marrow biopsy. HOSPITAL COURSE: The patient is a 67-year-old female, who was admitted to the hospital with worsening shortness of breath. Apparently, she has a history of Sjogren's syndrome, lupus, celiac disease, hypertension, hypothyroidism with a newly diagnosed aggressive lymphoma. The patient was originally admitted to [facility] but since there was no oncology service in this hospital, the patient was transferred to [facility] in [place]. At the time of admission to the hospital, her BMP showed sodium of 132, potassium 3.8, chloride 100, CO2 of 22, glucose 97, BUN 12, creatinine 0.77, calcium 8.9. CBC showed WBCs of 8.3, hemoglobin of 12.5, MCV 87, platelet count is 180,000. The patient was placed on noninvasive respiratory support and on broad-spectrum antibiotic. Pulmonology and oncologist were consulted. The patient was seen by Dr. Adair, who put the MediPort and PleurX catheter on the right side, and he drained 2 L of fluid which came back with pathology positive for consistent with history of B-cell lymphoma. Echocardiogram was performed and showed normal LVEF with mild valvular changes and mild diastolic dysfunction. CT of the abdomen and pelvis was performed and it showed bilateral pleural effusion and adjacent consolidative changes, and 9 mm aortocaval lymph node along with cholelithiasis. Also, there was some right pneumothorax with malpositioning of the right chest tube. This was readjusted. The patient was seen by Oncology Service. She was treated with R-CHOP chemotherapy. She had mild tumor lysis syndrome, which was appropriately treated with allopurinol. Also, she underwent biopsy of the bone marrow which showed normocellular marrow with trilineage hematopoiesis. There was no evidence of B-cell lymphoma and mild increase in storage of iron. The patient is doing well. Her blood pressure is 162/75, pulse is 76, temperature is 98.0, respiratory rate is 18, O2 saturation is 95% on room air. Clinically, she is doing well. She wants to go home. She is seen and examined before she is discharged. She is going to stay on regular diet. ACTIVITY: As tolerated. MEDICATIONS: At the time of discharge: 1. Losartan 100 mg once a day. 2. Levothyroxine 100 mcg once a day. 3. Furosemide 40 mg once a day. 4. Allopurinol 100 mg twice a day. FOLLOWUP: She will follow up with Dr. Adair. She will call his office to set up followup appointment. She will follow up with Dr. Sorto on the 24 of November and she will get chemotherapy on the . TIME SPENT: Time spent on this discharge is less than 30 minutes. Job ID: [id number]
== END 2018-11-10 18:13 | disposition home or self-care (01) | DRG 823 ==
LOC: IMCU/EMU 14:14 → CCU 11-04 10:43 → ONC 11-07 22:19
PROVIDERS: ADMIT Internal Medicine; ATTEND Internal Medicine
PROC: 0JH60WZ Insertion of Totally Implantable Vascular Access Device into Chest Subcutaneous Tissue and Fascia, Open Approach (ICD-10-PCS; principal; 2018-11-04)
PROC: 02HV33Z Insertion of Infusion Device into Superior Vena Cava, Percutaneous Approach (ICD-10-PCS; 2018-11-04)
PROC: B548ZZA Ultrasonography of Superior Vena Cava, Guidance (ICD-10-PCS; 2018-11-04)
PROC: 0W9930Z Drainage of Right Pleural Cavity with Drainage Device, Percutaneous Approach (ICD-10-PCS; 2018-11-04)
PROC: 0BH17EZ Insertion of Endotracheal Airway into Trachea, Via Natural or Artificial Opening (ICD-10-PCS; 2018-11-04)
PROC: 5A1945Z Respiratory Ventilation, 24-96 Consecutive Hours (ICD-10-PCS; 2018-11-04)
PROC: 3E03305 Introduction of Other Antineoplastic into Peripheral Vein, Percutaneous Approach (ICD-10-PCS; 2018-11-06)
PROC: 07DR3ZX Extraction of Iliac Bone Marrow, Percutaneous Approach, Diagnostic (ICD-10-PCS; 2018-11-09)
DX: C85.12 Unspecified B-cell lymphoma, intrathoracic lymph nodes (principal); J96.01 Acute respiratory failure with hypoxia; E88.3 Tumor lysis syndrome; J93.9 Pneumothorax, unspecified; T85.628A Displacement of other specified internal prosthetic devices, implants and grafts, initial encounter; J91.0 Malignant pleural effusion; E22.2 Syndrome of inappropriate secretion of antidiuretic hormone; K74.60 Unspecified cirrhosis of liver; K75.81 Nonalcoholic steatohepatitis (NASH); M35.00 Sjogren syndrome, unspecified; M32.9 Systemic lupus erythematosus, unspecified; E87.70 Fluid overload, unspecified; E03.9 Hypothyroidism, unspecified; K90.0 Celiac disease; I10 Essential (primary) hypertension; E66.9 Obesity, unspecified; K80.20 Calculus of gallbladder without cholecystitis without obstruction; Y83.8 Other surgical procedures as the cause of abnormal reaction of the patient, or of later complication, without mention of misadventure at the time of the procedure
CPT/HCPCS: 20225; 36415; 71045; 74177; 77012; 80048; 80053; 82533; 82805; 83615; 83735; 84100; 84443; 84550; 85007; 85025; 85027; 85060; 85097; 85610; 85730; 88112; 88184; 88237; 88264; 88280; 88305; 88311; 88313; 88341; 88342; 93306; 94002; 94003; 94640; 94660; C1729; C1769; C1788; J0456; J0670; J0692; J1100; J1200; J1453; J1642; J1650; J1940; J2001; J2060; J2250; J2270; J2405; J2469; J2505; J2704; J2930; J3010; J3490; J7050; J7070; J7620; J9000; J9070; J9312; J9370; S0028

== ENCOUNTER 2018-11-17 09:36 | Outpatient (CLI) | payer MEDICARE ==
--- NOTE | 2018-11-17 15:01 | PET ---
PET CT: HISTORY: A 67-year-old female with diffuse large B-cell lymphoma. Last chemotherapy was on 11/04/2018. TECHNIQUE: PET scanning with CT attenuation correction was performed from the base of the brain through the prox imal thighs following the intravenous administration of 11.3 mCi [id number]. CORRELATION: CT abdomen and pelvis dated 11/05/2018. COMPARISON: None. FINDINGS: There is hypermetabolic activity in the mediastinal lymph nodes with an SUV of 2.7 in the prevascular space and 3.2 in the right periarticular region. No kim hypermetabolism is seen in the neck, axil la, hilar regions, abdomen, pelvis, or inguinal regions. No hypermetabolic pulmonary nodules, liver or adrenal lesions are seen. Diffusely increased uptake in the spine is likely due to bone marrow stimulation from recent chemothe rapy. There is physiologic activity in the GI and tracts and the visualized portions of the brain . The CT scan used for attenuation correction demonstrates a small right pleural effusion. No ascites is seen. There is cholelithiasis. IMPRESSION: 1. Viable lymphoma in the mediastinal lymph nodes. 2. Small right pleural effusion. POS: [facility]
== END 2018-11-17 09:37 | disposition home or self-care (01) ==
LOC: PET 09:36
PROVIDERS: ATTEND Internal Medicine Hematology & Oncology
DX: C83.30 Diffuse large B-cell lymphoma, unspecified site (principal); C85.92 Non-Hodgkin lymphoma, unspecified, intrathoracic lymph nodes; J90 Pleural effusion, not elsewhere classified
CPT/HCPCS: 78815; A9552

== ENCOUNTER 2018-12-06 15:30 | Outpatient (CLI) | payer MEDICARE ==
--- NOTE | 2018-12-06 15:58 | RAD ---
PA AND LATERAL VIEWS CHEST: Date: 12/06/18 HISTORY: Malignant pleural effusion. FINDINGS/IMPRESSION: Comparison made with exam of 11/08/18. Left-sided Port-A-Cath remains in place. The right internal jugular central line has been removed in the interim. Right-sided chest tube has been placed with improvement in the aeration of the right melissa g and near complete resolution of right pleural effusion. No definite pneumothorax is seen. The heart size is normal. POS: [facility]
== END 2018-12-06 15:31 | disposition home or self-care (01) ==
LOC: RAD 15:30
PROVIDERS: ATTEND Thoracic Surgery (Cardiothoracic Vascular Surgery)
DX: J91.0 Malignant pleural effusion (principal)
CPT/HCPCS: 71046

== ENCOUNTER 2018-12-16 10:56 | Day surgery (SDC) | payer MEDICARE ==
[2018-12-15 10:31] VITALS: BMI 43.0
[2018-12-16] MEDS ORDERED: Bupivacaine HCl 0.5%/Epinephrine 1:200,000/PF 30 ml Vial ONE (11:36)
--- NOTE | 2018-12-16 15:29 | OP ---
DATE OF PROCEDURE: 12/16/2018 PREOPERATIVE DIAGNOSIS: End-of-life PleurX catheter. POSTOPERATIVE DIAGNOSIS: End-of-life PleurX catheter. PROCEDURE PERFORMED: PleurX catheter removal. ANESTHESIA: 0.5% Marcaine with epinephrine and IV sedation. DESCRIPTION OF PROCEDURE: After consent was obtained, the patient was brought to the operating room, placed in supine position on the operating table. Appropriate central line and monitor was placed. IV sedation was given. Catheter insertion site was prepped and draped in the usual sterile fashion. Blunt dissection was used to dissect the cuff and remove it after anesthetizing the area with 0.5% Marcaine. The patient tolerated the procedure well and was transferred back to Day Stay in good condition. Job ID: [id number]
[2018-12-16] MEDS ORDERED: Ondansetron PF 4 MG/2 ML Vial ONE (15:46)
[2018-12-16] MEDS ORDERED: PROPOFOL 200 MG/20 ML VIAL ONE (15:46)
== END 2018-12-16 12:23 | disposition home or self-care (01) ==
LOC: SDC 10:56
PROVIDERS: ATTEND Thoracic Surgery (Cardiothoracic Vascular Surgery)
PROC: 0WP930Z Removal of Drainage Device from Right Pleural Cavity, Percutaneous Approach (ICD-10-PCS; principal; 2018-12-16)
DX: Z46.82 Encounter for fitting and adjustment of non-vascular catheter (principal); C85.80 Other specified types of non-Hodgkin lymphoma, unspecified site; J91.0 Malignant pleural effusion; E66.01 Morbid (severe) obesity due to excess calories; Z68.41 Body mass index [BMI] 40.0-44.9, adult; Z79.899 Other long term (current) drug therapy; Z91.018 Allergy to other foods
CPT/HCPCS: J0670; J2405; J2704

== ENCOUNTER 2019-01-06 09:04 | Outpatient (CLI) | payer MEDICARE ==
--- NOTE | 2019-01-06 11:55 | PET ---
PET CT SKULL TO MID THIGH: COMPARISON: None. HISTORY: Diffuse large B-cell lymphoma. TECHNIQUE: A PET/CT was performed from the skull to the mid thigh after administration of 11.2 millicuries of F- 18 FDG. Evaluation was performed on a [employer] workstation. FINDINGS: NECK: No areas of hypermetabolic activity. CHEST: Prior hypermetabolic activity in thoracic lymph nodes has decreased. These lymph nodes do dutch in, although no hypermetabolic activity is currently demonstrated. ABDOMEN/PELVIS: No areas of hypermetabolic activity. SKELETON: No new focal hypermetabolic osseous lesions. The previous described diffuse uptake of the o sseous structures has decreased, and again may relate to stimulation from prior chemotherapy. CT images used for attenuation correction show calcified gallstones. IMPRESSION: 1. Resolution of mild hypermetabolic activity of intrathoracic lymph nodes. 2. No new metabolically active lymphoma is demonstrated. Transcribed Date/Time: 01/06/2019 12:10 PM
== END 2019-01-06 09:05 | disposition home or self-care (01) ==
LOC: PET 09:04
PROVIDERS: ATTEND Internal Medicine Hematology & Oncology
DX: C83.32 Diffuse large B-cell lymphoma, intrathoracic lymph nodes (principal)
CPT/HCPCS: 78815; A9552

== ENCOUNTER 2019-04-11 11:15 | Outpatient (CLI) | payer MEDICARE ==
--- NOTE | 2019-04-11 13:58 | PET ---
EXAM: PET CT skull to mid thigh COMPARISON: 01/06/2019 HISTORY: Diffuse large B-cell lymphoma TECHNIQUE: A PET/CT was performed from the skull to the mid thigh after administration of 10.8 millic uries of F-18 FDG. Evaluation was performed on a [employer] workstation. FINDINGS: NECK: No areas of hypermetabolic activity. Uptake of the radiopharmaceutical is seen in the left neck surrounding the left Mediport and in the Mediport tubing. The radiopharmaceutical was injected through this Mediport and this likely represents contamination. CHEST: No areas of hypermetabolic activity ABDOMEN/PELVIS: No areas of hypermetabolic activity SKELETON: No areas of hypermetabolic activity CT images used for attenuation correction show calcified gallstones in the gallbladder.. IMPRESSION: No evidence of residual disease
== END 2019-04-11 11:16 | disposition home or self-care (01) ==
LOC: PET 11:15
PROVIDERS: ATTEND Internal Medicine Hematology & Oncology
DX: C83.32 Diffuse large B-cell lymphoma, intrathoracic lymph nodes (principal)
CPT/HCPCS: 78815; A9552

== ENCOUNTER 2020-01-18 13:06 | Outpatient (CLI) | payer MEDICARE ==
[2020-01-18] MEDS ORDERED: Iopamidol-370 76% 500 ML 1 ML ONE (14:22)
--- NOTE | 2020-01-18 19:36 | CT ---
CT CHEST, ABDOMEN, AND PELVIS WITH IV CONTRAST: 01/18/20 HISTORY: Large B-cell lymphoma. Intrathoracic lymph nodes present. This is for follow-up evaluation. Patient w ith history of prior chemotherapy. COMPARISON: CT abdomen and pelvis on 11/05/[address] scan on 04/11/19. CT THORAX: A left internal jugular vein Mediport catheter is noted in place with the tip in the superior mediast inum and likely within the left brachiocephalic vein, but there is evidence of pneumomediastinum just posterior to the distal portion of the Mediport catheter of uncertain etiology. No enlarged lymph no juan are seen within the mediastinum by CT size criteria. Thoracic aorta is normal in caliber. There are linear densities seen in the anteromedial aspect of the right upper lobe also seen on the P ET CT exam of 04/11/19 and may represent focal area of mild scarring. The Linear parenchymal densities in the more inferomedial aspect of the right middle lobe as well as right lung base and to a lesser extent in the lingula and left lower lobe are seen with associated mild bronchiectasis likely related to chronic lung changes. A small 6 mm pulmonary nodule was seen in the lateral aspect of the left upper lobe. This was probabl y represent on the CTA chest on 10/29/18, but due to motion, this is difficult to adequately evaluate for stability. No additional discrete pulmonary nodule or mass is seen. CT ABDOMEN AND PELVIS: Multiple gallbladder calculi are again seen. The liver, spleen, pancreas, bilateral adrenal glands, kidneys, urinary bladder, uterus and adnexal s tructures demonstrate a normal CT appearance. The opacified loops of small bowel are normal in caliber. Small amount of retained fecal material is seen throughout the colon with a few scattered colonic diverticula visualized. No enlarged lymph nodes are seen by CT size criteria within the abdomen or pelvis. No free fluid or f luid collection is identified. Multilevel degenerative changes are seen in the lumbar spine. There is slight retrolisthesis of L3 on L4 with grade I anterolisthesis of L4 on L5 which measures approximately 11 mm. Facet degenerative c hanges are seen at this level. There is partial fusion of the L2 and L3 vertebral bodies. Left convex ed scoliosis lumbar spine is present. No suspicious lytic or sclerotic osseous lesions are seen. Ther e is sclerosis on either side of the right sacroiliac joint which is an asymmetric finding, but this is stable compared to prior studies. IMPRESSION: 1. Left sided Mediport catheter in place which is presumed to be within the left innominate vein , but the left innominate vein is very small in size and not well visualized. Just posterior to the p ort catheter is gas in the mediastinum. A recent port study obtained on this date demonstrates contra st extravasating from the distal portion of the port catheter which likely accounts for this finding. There is no hematoma or significant amount of fluid in the mediastinum secondary to this finding. 2. No enlarged lymph nodes are seen in the chest, abdomen or pelvis by CT size criteria. 3. Chronic lung changes. 4. Left upper lobe pulmonary nodule measuring 6 mm. This is grossly stable compared to study on 10/29/18. However, an additional follow-up evaluation in one year is recommended. 5. Cholelithiasis. 6. Severe degenerative changes of the spine with slight retrolisthesis of L3 and L4 and grade I anterolisthesis of L4 on L5 with left convexed scoliosis. 7. Findings concerning the gas in the mediastinum was discussed with Dr. Sorto on 01/18/20 at 16 54 hours. POS: OFF
== END 2020-01-18 13:07 | disposition home or self-care (01) ==
LOC: BICCT 13:06
PROVIDERS: ATTEND Internal Medicine Hematology & Oncology
DX: C83.32 Diffuse large B-cell lymphoma, intrathoracic lymph nodes (principal); K80.20 Calculus of gallbladder without cholecystitis without obstruction; R91.1 Solitary pulmonary nodule; M47.816 Spondylosis without myelopathy or radiculopathy, lumbar region; M43.16 Spondylolisthesis, lumbar region; M41.9 Scoliosis, unspecified
CPT/HCPCS: 71260; 74177; 80053; 82248; 83615; 84100; 84550; Q9967

== ENCOUNTER → 2020-01-18 | Day surgery (SDC) | payer MEDICARE ==
[~2020-01-18] MED LIST: Iopamidol 300 61% 50 ML VIAL FS ONE
--- NOTE | 2020-01-18 16:15 | RAD ---
XR Vascular Access Port Check History: MediPort malfunction Comparison: None. Findings: Patient was brought to the specials suite. All questions were answered. Contrast was instil led retrograde into the port catheter. There is a defect within the catheter in the left neck. There is also fibrin sheath around the tip. Impression: 1. Defect with contrast extravasation in the left neck of the port catheter tubing. 2. Fibrin sheath around the port catheter tip. Dr. Sorto notified of findings via [place] [facility].
== END ==
LOC: SPEC 14:26
PROVIDERS: ATTEND Internal Medicine Hematology & Oncology
DX: T82.318A Breakdown (mechanical) of other vascular grafts, initial encounter (principal); Z79.899 Other long term (current) drug therapy; Z88.8 Allergy status to other drugs, medicaments and biological substances
CPT/HCPCS: 36598; J1642; Q9967

== ENCOUNTER 2020-07-30 10:21 | Outpatient (CLI) | payer MEDICARE ==
[~2020-07-30 10:21] MED LIST changes: -Iopamidol 300 61% 50 ML VIAL FS ONE; +Iopamidol-370 76% 500 ML 1 ML ONE
[2020-07-30 11:19] LABS: Estimated GFR-MDRD - POC Greater than 90
== END 2020-07-30 10:22 | disposition home or self-care (01) ==
LOC: BICCT 10:21
PROVIDERS: ATTEND Internal Medicine Hematology & Oncology
DX: C83.32 Diffuse large B-cell lymphoma, intrathoracic lymph nodes (principal); R91.1 Solitary pulmonary nodule; K80.20 Calculus of gallbladder without cholecystitis without obstruction
CPT/HCPCS: 71260; 74177; 82565; Q9967

== ENCOUNTER 2021-02-21 08:40 | Outpatient (CLI) | payer MEDICARE ==
[2021-02-21] MEDS ORDERED: Iopamidol 370 76% 100 ML VIAL ONE (12:14)
== END 2021-02-21 08:41 | disposition home or self-care (01) ==
LOC: BICCT 08:40
PROVIDERS: ATTEND Internal Medicine Hematology & Oncology
DX: C83.32 Diffuse large B-cell lymphoma, intrathoracic lymph nodes (principal)
CPT/HCPCS: 71260; 74177; Q9967

== ENCOUNTER 2021-04-30 08:29 | Outpatient (CLI) | payer MEDICARE ==
[2021-04-30 09:24] LABS: Estimated GFR-MDRD - POC Greater than 90
== END 2021-04-30 08:30 | disposition home or self-care (01) ==
LOC: CT 08:29
PROVIDERS: ATTEND Internal Medicine Hematology & Oncology
DX: R91.8 Other nonspecific abnormal finding of lung field (principal); C83.32 Diffuse large B-cell lymphoma, intrathoracic lymph nodes; K80.20 Calculus of gallbladder without cholecystitis without obstruction
CPT/HCPCS: 71260; 82565

== ENCOUNTER 2021-07-25 08:30 | Outpatient (CLI) | payer MEDICARE | END 2021-07-25 08:31 | disposition home or self-care (01) | LOC: BICCT 08:30 | PROVIDERS: ATTEND Internal Medicine Hematology & Oncology | DX: R91.8 Other nonspecific abnormal finding of lung field (principal); C83.32 Diffuse large B-cell lymphoma, intrathoracic lymph nodes; Z53.9 Procedure and treatment not carried out, unspecified reason | CPT/HCPCS: 71260 ==

== ENCOUNTER 2022-08-05 12:43 | Outpatient (CLI) | payer OTHER ==
[~2022-08-05 12:43] MED LIST changes: +Iopamidol 370 76% 100 ML VIAL ONE; -Iopamidol-370 76% 500 ML 1 ML ONE
== END 2022-08-05 12:44 | disposition home or self-care (01) ==
LOC: BICCT 12:43
PROVIDERS: ATTEND Internal Medicine Hematology & Oncology
DX: R91.8 Other nonspecific abnormal finding of lung field (principal); C83.32 Diffuse large B-cell lymphoma, intrathoracic lymph nodes; J98.11 Atelectasis; J98.09 Other diseases of bronchus, not elsewhere classified; J47.9 Bronchiectasis, uncomplicated
CPT/HCPCS: 71260; 82565

== ENCOUNTER 2023-03-19 09:47 | Outpatient (CLI) | payer OTHER | END 2023-03-19 09:48 | disposition home or self-care (01) | LOC: BICCT 09:47 | PROVIDERS: ATTEND Internal Medicine Hematology & Oncology | DX: C83.32 Diffuse large B-cell lymphoma, intrathoracic lymph nodes (principal); R91.8 Other nonspecific abnormal finding of lung field; J47.9 Bronchiectasis, uncomplicated; K80.20 Calculus of gallbladder without cholecystitis without obstruction | CPT/HCPCS: 71260; 82565 ==

== ENCOUNTER 2023-06-04 09:55 | Outpatient (CLI) | payer OTHER | END 2023-06-04 09:56 | disposition home or self-care (01) | LOC: RAD 09:55 | PROVIDERS: ATTEND Internal Medicine | DX: R06.00 Dyspnea, unspecified (principal); J98.4 Other disorders of lung | CPT/HCPCS: 71046 ==